=== PATIENT | female | born 1975 | race Caucasian/White ===

== ENCOUNTER 2018-07-17 15:11 | Emergency (ER) | payer SELFPAY ==
[~2018-07-17] VITALS: Ht 162.6 cm; Wt 65.8 kg
--- NOTE | 2018-07-17 15:32 | ED Chest Pain ---
General Chief Complaint: Chest Pain Stated Complaint: CHEST PAIN,WEAK, FAINTED EARLIER TODAY Source: patient, RN notes reviewed Exam Limitations: no limitations History of Present Illness Date Seen by Provider: July 17, 2018 Time Seen by Provider: 15:32 Allergies and Home Medications Allergies Coded Allergies: No Known Drug Allergies (Unverified , 07/17/18) Past Cvcrtyu-Rvlrcg-Cybdbk Hx Patient Social History Recent Foreign Travel: No Contact w/Someone Who Travel: No (N) Physical Exam Vital Signs Vital Signs - First Documented Capillary Refill : Height, Weight, BMI Height: '" Weight: lbs. oz. kg; BMI Method: Progress/Results/Core Measures Results/Orders Lab Results Laboratory Tests Test 07/17/18 00:00 07/17/18 15:35 Range/Units White Blood Count 8.6 4.3-11.0 10^3/uL Red Blood Count 4.60 4.35-5.85 10^6/uL Hemoglobin 14.2 11.5-16.0 G/DL Hematocrit 40 35-52 % Mean Corpuscular Volume 87 80-99 FL Mean Corpuscular Hemoglobin 31 25-34 PG Mean Corpuscular Hemoglobin Concent 36 32-36 G/DL Red Cell Distribution Width 13.0 10.0-14.5 % Platelet Count 240 130-400 10^3/uL Mean Platelet Volume 11.1 H 7.4-10.4 FL Neutrophils (%) (Auto) 52 42-75 % Lymphocytes (%) (Auto) 40 12-44 % Monocytes (%) (Auto) 6 0-12 % Eosinophils (%) (Auto) 2 0-10 % Basophils (%) (Auto) 0 0-10 % Neutrophils # (Auto) 4.4 1.8-7.8 X 10^3 Lymphocytes # (Auto) 3.4 1.0-4.0 X 10^3 Monocytes # (Auto) 0.6 0.0-1.0 X 10^3 Eosinophils # (Auto) 0.2 0.0-0.3 10^3/uL Basophils # (Auto) 0.0 0.0-0.1 10^3/uL D-Dimer 0.33 0.00-0.49 UG/ML Sodium Level 140 135-145 MMOL/L Potassium Level 3.7 3.6-5.0 MMOL/L Chloride Level 102 98-107 MMOL/L Carbon Dioxide Level 24 21-32 MMOL/L Anion Gap 14 5-14 MMOL/L Blood Urea Nitrogen 6 L 7-18 MG/DL Creatinine 0.80 0.60-1.30 MG/DL Estimat Glomerular Filtration Rate > 60 BUN/Creatinine Ratio 8 Glucose Level 121 H 70-105 MG/DL Calcium Level 8.7 8.5-10.1 MG/DL Corrected Calcium 8.5-10.1 MG/DL Magnesium Level 2.0 1.8-2.4 MG/DL Total Bilirubin 0.3 0.1-1.0 MG/DL Aspartate Amino Transf (AST/SGOT) 14 5-34 U/L Alanine Aminotransferase (ALT/SGPT) 10 0-55 U/L Alkaline Phosphatase 91 40-136 U/L Troponin T < 6 <=10 NG/L Total Protein 7.5 6.4-8.2 GM/DL Albumin 4.6 H 3.2-4.5 GM/DL Lipase 21 8-78 U/L My Orders Orders - PATRICIA LAMB DO Chest 1 View Ap/Pa Only (07/17/18 15:32) Ekg Tracing (07/17/18 15:32) Ed Iv/Invasive Line Start (07/17/18 15:32) Monitor-Rhythm Ecg Trace Only (07/17/18 15:32) Cbc With Automated Diff (07/17/18 15:32) Comprehensive Metabolic Panel (07/17/18 15:32) Fibrin Degradation Products (07/17/18 15:32) Drug Screen Stat (Urine) (07/17/18 15:32) Lipase (07/17/18 15:32) Magnesium (07/17/18 15:32) Ua Culture If Indicated (07/17/18 15:32) Troponin T (07/17/18 15:32) Orthostatic Vital Signs (Adult (07/17/18 15:32) Lidocaine 2% Viscous 15 Ml (Xylocaine Vi (07/17/18 16:45) Antacid Suspension (Mylanta Suspension (07/17/18 16:45) Ketorolac Injection (Toradol Injection) (07/17/18 18:00) Medications Given in ED Current Medications Medications Dose Ordered Sig/Tejas Route Start Time Stop Time Status Last Admin Dose Admin Al Hydrox/Mg Hydrox/Simethicone 30 ml ONCE ONCE PO 07/17/18 16:45 07/17/18 16:46 DC 07/17/18 17:04 30 ML Ketorolac Tromethamine 15 mg ONCE ONCE IVP 07/17/18 18:00 07/17/18 18:01 DC 07/17/18 18:07 15 MG Lidocaine HCl 15 ml ONCE ONCE PO 07/17/18 16:45 07/17/18 16:46 DC 07/17/18 17:05 15 ML Vital Signs/I&O 07/17/18 07/17/18 07/17/18 15:25 15:25 16:12 Temp 99.6 Pulse 93 94 100 134 Resp 13 B/P (MAP) 103/76 (85) 104/66 (79) 113/84 (94) 97/68 (78) Pulse Ox 97 O2 Delivery Room Air Room Air Initial ECG Impression Date: July 17, 2018 Initial ECG Impression Time: 15:29 Initial ECG Rate: 84 Initial ECG Rhythm: Normal Sinus Initial ECG Intervals: QT (Prolonged) Initial ECG Impression: Nonspecific Changes Initial ECG Comparisson: No Previous ECG Available Departure Impression Primary Impression: Non-cardiac chest pain Additional Impression: Gastritis vs PUD Disposition: 01 HOME, SELF-CARE Condition: Stable Departure-Patient Inst. Decision time for Depature: 18:17 Referrals: [facility] [place] Patient Instructions: Chest Pain That Is Not Caused by the Heart (DC), Gastritis (DC), Ulcer and Gastritis Diet Add. Discharge Instructions: All discharge instructions reviewed with patient and/or family. Voiced understanding. NEED TO CALL [facility] TOMORROW, 07/18, AND ARRANGE FOLLOW UP APPOINTMENT AND CARE, WELL GET ESTABLISHED WITH A PCP. Scripts Tramadol HCl (Tramadol HCl) 50 Mg Tablet 50-100 MG PO Q6H PRN for PAIN-MILD TO MODERATE, #20 TAB 0 Refills Prov: PATRICIA LAMB DO 07/17/18 Ondansetron (Ondansetron Odt) 4 Mg Tab.rapdis 4 MG PO Q6H PRN for NAUSEA/VOMITING, #10 TAB 0 Refills Prov: PATRICIA LAMB DO 07/17/18 Famotidine (Pepcid) 20 Mg Tablet 20 MG PO BID for GASTRITIS, #30 TAB 0 Refills Prov: PATRICIA LAMB DO 07/17/18 PATRICIA LAMB DO July 17, 2018 15:32
[2018-07-17 15:48] LABS: HEMATOCRIT 40 % (35-52); HEMOGLOBIN 14.2 G/DL (11.5-16.0); MEAN CORPUSCULAR HEMOGLOBIN 31 PG (25-34); MEAN CORPUSCULAR VOLUME 87 FL (80-99); WHITE BLOOD COUNT 8.6 10^3/uL (4.3-11.0)
[2018-07-17 15:49] LABS: BASOPHILS % (AUTO) 0 % (0-10); EOSINOPHILS # (AUTO) 0.2 10^3/uL (0.0-0.3); EOSINOPHILS % (AUTO) 2 % (0-10); LYMPHOCYTES # (AUTO) 3.4 X 10^3 (1.0-4.0); LYMPHOCYTES % (AUTO) 40 % (12-44); MEAN CORPUSCULAR HGB CONC 36 G/DL (32-36); MEAN PLATELET VOLUME 11.1 FL (7.4-10.4); MONOCYTES # (AUTO) 0.6 X 10^3 (0.0-1.0); MONOCYTES % (AUTO) 6 % (0-12); NEUTROPHILS # (AUTO) 4.4 X 10^3 (1.8-7.8); NEUTROPHILS % (AUTO) 52 % (42-75); PLATELET COUNT 240 10^3/uL (130-400)
[2018-07-17 16:09] LABS: CHLORIDE 102 MMOL/L (98-107); POTASSIUM 3.7 MMOL/L (3.6-5.0); SODIUM 140 MMOL/L (135-145)
[2018-07-17 16:10] LABS: ALANINE AMINOTRANSFERASE 10 U/L (0-55); ALBUMIN 4.6 GM/DL (3.2-4.5); ALKALINE PHOSPHATASE 91 U/L (40-136); BILIRUBIN,TOTAL 0.3 MG/DL (0.1-1.0); BUN/CREATININE RATIO 8; CALCIUM 8.7 MG/DL (8.5-10.1); CARBON DIOXIDE 24 MMOL/L (21-32); GFR ESTIMATED > 60; GLUCOSE 121 MG/DL (70-105); LIPASE 21 U/L (8-78); TOTAL PROTEIN 7.5 GM/DL (6.4-8.2)
[2018-07-17 16:12] VITALS: BP_SYST 104; BP_SYST 113; BP_SYST 97; BP_DIAS 66; BP_DIAS 68; BP_DIAS 84
--- NOTE | 2018-07-17 16:17 | Diagnostic Imaging Report ---
INDICATION: Chest pain. Portable chest at 4 p.m. FINDINGS: Heart size and pulmonary vascularity are normal. Lungs are clear. There are no effusions or pneumothoraces. IMPRESSION: Negative chest. Dictated by: Dictated on workstation # [id number]
[2018-07-17] MEDS ORDERED: ANTACID SUSP 30 ML UDC (MYLANTA) PO ONE (16:45)
[2018-07-17] MEDS ORDERED: LIDOCAINE 2% VISCOUS 15 ML UDC PO ONE (16:45)
--- OUTSIDE RECORDS SUMMARY | 2018-07-17 17:06 | XMS REPORT | Continuity of Care Document ---
Author Organization Unknown Address Unknown Allergies Active Description Code Type Severity Reaction Onset Reported/Identified Relationship to Patient Clinical Status Yes NO NAME AVAILABLE 12016 DRUG N/A N/A Medications Medication Packaging Start Date Stop Date Route Dosage Sig ALUM T MAG HYDROXIDE-SIMETH 200-200-20 MG/5ML PO SUSP 05/27/2016 Oral 30 4 TIMES DAILY PRN OLANZAPINE 10 MG PO TBDP 05/27/2016 Oral 10 2 TIMES DAILY PRN ACETAMINOPHEN 325 MG PO TABS 05/27/2016 Oral 650 EVERY 6 HOURS PRN MAGNESIUM HYDROXIDE 400 MG/5ML PO SUSP 05/27/2016 Oral 30 DAILY PRN QUETIAPINE FUMARATE 25 MG PO TABS 05/27/2016 Oral 25 4 TIMES DAILY PRN TRAZODONE HCL 100 MG PO TABS 05/27/2016 Oral 100 BEDTIME PRN NICOTINE POLACRILEX 2 MG MT GUM 05/27/2016 Oral 2 EVERY 1 HOUR PRN NICOTINE POLACRILEX 2 MG MT LOZG 05/27/2016 Oral 2 EVERY 1 HOUR PRN NICOTINE 14 MG/24HR TD PT24 05/27/2016 Transdermal 1 DAILY NICOTINE 21 MG/24HR TD PT24 05/27/2016 Transdermal 1 DAILY VENLAFAXINE HCL ER 37.5 MG PO CP24 05/27/2016 Oral 37.5 DAILY WITH BREAKFAST HYDROXYZINE HCL 25 MG PO TABS 05/27/2016 Oral 25 DAILY PRN NITROFURANTOIN MONOHYD MACRO 100 MG PO CAPS 05/27/2016 Oral 100 2 TIMES DAILY WITH MEALS HYDROXYZINE HCL 25 MG PO TABS 05/27/2016 Oral 25 BEDTIME HYDROXYZINE HCL 25 MG PO TABS 05/29/2016 Oral 50 BEDTIME VENLAFAXINE HCL ER 37.5 MG PO CP24 05/30/2016 Oral 37.5 ONCE VENLAFAXINE HCL ER 75 MG PO CP24 05/31/2016 Oral 75 DAILY WITH BREAKFAST NICOTINE POLACRILEX 2 MG MT GUM 08/31/2017 Oral 2 EVERY 1 HOUR PRN NICOTINE POLACRILEX 2 MG MT LOZG 08/31/2017 Oral 2 EVERY 1 HOUR PRN TRAZODONE HCL 100 MG PO TABS 08/31/2017 Oral 100 BEDTIME PRN ALUM T MAG HYDROXIDE-SIMETH 200-200-20 MG/5ML PO SUSP 08/31/2017 Oral 30 4 TIMES DAILY PRN ACETAMINOPHEN 325 MG PO TABS 08/31/2017 Oral 650 EVERY 6 HOURS PRN MAGNESIUM HYDROXIDE 400 MG/5ML PO SUSP 08/31/2017 Oral 30 DAILY PRN QUETIAPINE FUMARATE 25 MG PO TABS 08/31/2017 Oral 25 4 TIMES DAILY PRN OLANZAPINE 10 MG PO TBDP 08/31/2017 Oral 10 2 TIMES DAILY PRN OLANZAPINE 10 MG PO TABS 08/31/2017 Oral 10 2 TIMES DAILY PRN PAROXETINE HCL 20 MG PO TABS 08/31/2017 Oral 20 EVERY MORNING NICOTINE 14 MG/24HR TD PT24 08/31/2017 Transdermal 1 DAILY NICOTINE 21 MG/24HR TD PT24 08/31/2017 Transdermal 1 DAILY PALIPERIDONE ER 6 MG PO TB24 08/31/2017 Oral 6 EVERY MORNING PALIPERIDONE PALMITATE 234 MG/1.5ML IM SUSP 08/31/2017 Intramuscular 234 ONCE GABAPENTIN 400 MG PO CAPS 08/31/2017 Oral 400 3 TIMES DAILY PROCHLORPERAZINE 25 MG RE SUPP 08/31/2017 Rectal 25 EVERY 6 HOURS PRN IBUPROFEN 600 MG PO TABS 08/31/2017 Oral 600 EVERY 4 HOURS PRN OLANZAPINE 5 MG PO TBDP 08/31/2017 Sublingual 5 EVERY 4 HOURS PRN ALUM T MAG HYDROXIDE-SIMETH 200-200-20 MG/5ML PO SUSP 08/31/2017 Oral 60 EVERY 1 HOUR PRN THIAMINE HCL 100 MG/ML IJ SOLN 08/31/2017 Intramuscular 100 ONCE VITAMIN B-1 100 MG PO TABS 08/31/2017 09/30/2017 Oral 100 DAILY FOLIC ACID 1 MG PO TABS 08/31/2017 09/30/2017 Oral 1 DAILY CENTRUM PO TABS 08/31/2017 Oral 1 DAILY PALIPERIDONE PALMITATE 117 MG/0.75ML IM SUSP 09/04/2017 Intramuscular 156 ONCE GABAPENTIN 400 MG PO CAPS 09/04/2017 Oral 400 3 TIMES DAILY Problems Date Dx Coded Attending Type Code Diagnosis Diagnosed By 05/30/2016 BETHANIE INIGUEZ V 310462 Suicidal BETHANIE INIGUEZ 05/30/2016 ELAINA INIGUEZKILA V F32.2 Major depressive disorder, single episode, severe without psychotic features (HCC) BETHANIE INIGUEZ 05/30/2016 BETHANIE INIGUEZ P T50.902A Poisoning by unspecified drugs, medicaments and biological substances, intentional self-harm, initial encounter ([facility]) BETHANIE INIGUEZ 09/04/2017 JUSTIN LEACH V [id number] Suicidal 09/04/2017 JUSTIN LEACH V 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, unspecified with unspecified alcohol-induced disorder (HCC) 09/04/2017 JUSTIN LEACH V F32.2 Major depressive disorder, single episode, severe without psychotic features (HCC) 09/04/2017 JUSTIN LEACH V F41.1 Generalized anxiety disorder 09/04/2017 JUSTIN LEACH V F41.9 Anxiety disorder, unspecified 09/04/2017 JUSTIN LEACH P T50.902A Poisoning by unspecified drugs, medicaments and biological substances, intentional self-harm, initial encounter ([facility]) 09/04/2017 JUSTIN LEACH F F10.10 Alcohol abuse, uncomplicated 09/04/2017 JUSTIN LEACH F F17.210 Nicotine dependence, cigarettes, uncomplicated 09/04/2017 JUSTIN LEACH F31.81 Bipolar II disorder (HCC) 09/04/2017 JUSTIN LEACH F41.0 Panic disorder (episodic paroxysmal anxiety) 09/04/2017 JUSTIN LEACH F41.1 Generalized anxiety disorder 09/04/2017 JUSTIN LEACH F60.3 Borderline personality disorder 09/04/2017 JUSTIN LEACH J44.9 Chronic obstructive pulmonary disease, unspecified (HCC) 09/04/2017 JUSTIN LEACH Z79.899 Other usp (current) drug therapy 09/04/2017 JUSTIN LEACH Z86.59 Personal history of other mental and behavioral disorders 09/04/2017 JUSTIN LEACH Z90.710 Acquired absence of both cervix and uterus 09/04/2017 JUSTIN LEACH Z91.5 Personal history of self-harm 09/04/2017 JUSTIN LEACH Z98.51 Tubal ligation status Procedures There is no data. Results There is no data. Encounters ACCT No. Visit Date/Time Discharge Status Pt. Type Provider Facility Loc./Unit Complaint [id number] 08/31/2017 10:42:00 09/04/2017 10:53:00 DIS Inpatient JUSTIN LEACH [facility] [id number] 05/27/2016 04:37:00 05/30/2016 16:53:00 DIS Inpatient BETHANIE INIGUEZ [facility] VN [id number] 05/27/2016 06:27:52 Document Registration
[2018-07-17] MEDS ORDERED: KETOROLAC 30 MG/ML VIAL IVP ONE (18:00)
[2018-07-17] MEDS ORDERED: FAMO-119 PO (18:20)
[2018-07-17] MEDS ORDERED: ONDA4TAB11 PO (18:21)
[2018-07-17] MEDS ORDERED: TRAM50TA2 PO (18:22)
[2018-07-17] MEDS ORDERED: FAMOTIDINE 20MG/2ML IV (PEPCID) IVP ONE (18:30)
[2018-07-17 18:52] VITALS: BP 117/83
== END 2018-07-17 18:52 | disposition home or self-care (01) ==
LOC: EDUNIT# 15:11 → ER FS 15:13
DX: R07.9 Chest pain, unspecified (principal)
CPT/HCPCS: 36415; 71045; 80053; 83690; 83735; 84484; 85025; 85379; 93005; 93041; 96374; 96375

== ENCOUNTER 2018-08-20 17:56 | Emergency (ER) | payer SELFPAY ==
[~2018-08-20] VITALS: Ht 162.6 cm; Wt 63.5 kg
[~2018-08-20 17:56] MED LIST: FAMO-119 PO; ONDA4TAB11 PO; TRAM50TA2 PO
[2018-08-20] MEDS ORDERED: morphine INJ 10 MG/ML 1ML (SYR OR VIAL) IVP STA (18:14)
[2018-08-20] MEDS ORDERED: NS IV 1000 ML 1,000 ML IV SCH (18:15)
[2018-08-20] MEDS ORDERED: PANTOPRAZOLE 40 MG (PROTONIX) VIAL IV ONE (18:15)
[2018-08-20] MEDS ORDERED: ANTACID SUSP 30 ML UDC (MYLANTA) PO ONE (18:15)
[2018-08-20] MEDS ORDERED: ONDANSETRON 4 MG/2 ML (SDV) Z0FRAN IVP ONE (18:15)
--- NOTE | 2018-08-20 18:16 | ED General ---
General Stated Complaint: ABD PAIN, VOMITING History of Present Illness Date Seen by Provider: Aug 20, 2018 Time Seen by Provider: 18:16 Initial Comments Patient presents emergency department for evaluation of abdominal pain that has been going on for more than a month and she has been seen by emergency room and primary care provider and told that she has ulcers and started on medication for ulcers but she does not know what it is. Pain is epigastric sharp intermittent worse with food causes nausea and vomiting and she says she cannot tolerate anything by mouth. She's had no fevers chills diarrhea constipation dysuria hematuria or vaginal bleeding or vaginal discharge. She is in no obvious distress with normal vital signs. Allergies and Home Medications Allergies Coded Allergies: No Known Drug Allergies (Unverified , 07/17/18) Home Medications Famotidine 20 Mg Tablet, 20 MG PO BID Prescribed by: PATRICIA LAMB on 07/17/181819 Ondansetron 4 Mg Tab.rapdis, 4 MG PO Q6H PRN for NAUSEA/VOMITING Prescribed by: PATRICIA LAMB on 07/17/181820 Tramadol HCl 50 Mg Tablet, 50-100 MG PO Q6H PRN for PAIN-MILD TO MODERATE Prescribed by: PATRICIA LAMB on 07/17/181821 Patient Home Medication List Home Medication List Reviewed: Yes Review of Systems Review of Systems Constitutional: no symptoms reported EENTM: no symptoms reported Respiratory: no symptoms reported Cardiovascular: no symptoms reported Gastrointestinal: abdominal pain, nausea, vomiting Genitourinary: no symptoms reported Musculoskeletal: no symptoms reported Skin: no symptoms reported Psychiatric/Neurological: No Symptoms Reported Past Gxodqxx-Fzanaj-Sutuug Hx Patient Social History Type Used: Cigarettes 2nd Hand Smoke Exposure: Yes Recent Foreign Travel: No Contact w/Someone Who Travel: No Recent Hopitalizations: No Seasonal Allergies Seasonal Allergies: No Past Medical History Surgeries: Yes Appendectomy, Hysterectomy Respiratory: No Cardiac: No Neurological: No Genitourinary: No Gastrointestinal: No Musculoskeletal: No Endocrine: No HEENT: No Cancer: No Psychosocial: Yes Anxiety, Depression Integumentary: No Physical Exam Vital Signs Capillary Refill : Height, Weight, BMI Height: 5'4.00" Weight: 145lbs. oz. 65.702846lk; BMI Method:Stated General Appearance: No Apparent Distress, WD/WN Eyes: Bilateral Eye Normal Inspection Neck: Normal Inspection Respiratory: No Respiratory Distress Cardiovascular: Regular Rate, Rhythm Gastrointestinal: Soft; No Guarding, No Rebound; Tenderness (epigastric) Back: Normal Inspection Extremity: Normal Capillary Refill Neurologic/Psychiatric: Alert, Oriented x3 Skin: Normal Color, Warm/Dry Progress/Results/Core Measures Suspected Sepsis SIRS Temperature: Pulse: Respiratory Rate: Laboratory Tests 08/20/18 18:12: White Blood Count 10.4 Blood Pressure / Mean: Laboratory Tests 08/20/18 18:12: Creatinine 0.88, Platelet Count 253, Total Bilirubin 0.4 Results/Orders Lab Results Laboratory Tests Test 08/20/18 18:12 08/20/18 18:49 Range/Units White Blood Count 10.4 4.3-11.0 10^3/uL Red Blood Count 4.45 4.35-5.85 10^6/uL Hemoglobin 13.6 11.5-16.0 G/DL Hematocrit 40 35-52 % Mean Corpuscular Volume 89 80-99 FL Mean Corpuscular Hemoglobin 31 25-34 PG Mean Corpuscular Hemoglobin Concent 34 32-36 G/DL Red Cell Distribution Width 13.2 10.0-14.5 % Platelet Count 253 130-400 10^3/uL Mean Platelet Volume 10.5 H 7.4-10.4 FL Neutrophils (%) (Auto) 44 42-75 % Lymphocytes (%) (Auto) 45 H 12-44 % Monocytes (%) (Auto) 8 0-12 % Eosinophils (%) (Auto) 3 0-10 % Basophils (%) (Auto) 1 0-10 % Neutrophils # (Auto) 4.6 1.8-7.8 X 10^3 Lymphocytes # (Auto) 4.6 H 1.0-4.0 X 10^3 Monocytes # (Auto) 0.8 0.0-1.0 X 10^3 Eosinophils # (Auto) 0.3 0.0-0.3 10^3/uL Basophils # (Auto) 0.1 0.0-0.1 10^3/uL Sodium Level 141 135-145 MMOL/L Potassium Level 3.5 L 3.6-5.0 MMOL/L Chloride Level 103 98-107 MMOL/L Carbon Dioxide Level 25 21-32 MMOL/L Anion Gap 13 5-14 MMOL/L Blood Urea Nitrogen 14 7-18 MG/DL Creatinine 0.88 0.60-1.30 MG/DL Estimat Glomerular Filtration Rate > 60 BUN/Creatinine Ratio 16 Glucose Level 114 H 70-105 MG/DL Calcium Level 8.9 8.5-10.1 MG/DL Corrected Calcium 8.6 8.5-10.1 MG/DL Total Bilirubin 0.4 0.1-1.0 MG/DL Aspartate Amino Transf (AST/SGOT) 12 5-34 U/L Alanine Aminotransferase (ALT/SGPT) 8 0-55 U/L Alkaline Phosphatase 72 40-136 U/L Total Protein 7.6 6.4-8.2 GM/DL Albumin 4.4 3.2-4.5 GM/DL Lipase 23 8-78 U/L Urine Color YELLOW Urine Clarity SLT CLOUDY Urine pH 6.5 5-9 Urine Specific [place] <=1.005 1.016-1.022 Urine Protein 1+ H NEGATIVE Urine Glucose (UA) NEGATIVE NEGATIVE Urine Ketones TRACE H NEGATIVE Urine Nitrite NEGATIVE NEGATIVE Urine Bilirubin NEGATIVE NEGATIVE Urine Urobilinogen 0.2 NORMAL MG/DL Urine Leukocyte Esterase NEGATIVE NEGATIVE Urine RBC (Auto) 2+ H NEGATIVE Urine RBC 0-2 /HPF Urine WBC 0-2 /HPF Urine Squamous Epithelial Cells 25-50 H /HPF Urine Crystals NONE /LPF Urine Bacteria TRACE /HPF Urine Casts NONE /LPF Urine Mucus SMALL H /LPF Urine Culture Indicated NO My Orders Orders - ADARSH AVITIA DO Comprehensive Metabolic Panel (08/20/18 18:14) Cbc With Automated Diff (08/20/18 18:14) Lipase (08/20/18 18:14) Ua Culture If Indicated (08/20/18 18:14) Ct Abdomen/Pelvis W (08/20/18 18:14) Ns Iv 1000 Ml (Sodium Chloride 0.9%) (08/20/18 18:15) Ondansetron Injection (Zofran Injectio (08/20/18 18:15) Morphine Injection (Morphine Injection (08/20/18 18:14) Antacid Suspension (Mylanta Suspension (08/20/18 18:15) Pantoprazole Injection (Protonix Injecti (08/20/18 18:15) Iohexol Injection (Omnipaque 350 Mg/Ml 1 (08/20/18 18:30) Received Contrast (Hold Metformin- Contr (08/20/18 18:30) Sodium Chloride Flush (Catheter Flush Sy (08/20/18 18:30) Ns (Ivpb) (Sodium Chloride 0.9% Ivpb Bag (08/20/18 18:30) Potassium Chloride (Tablet) (K Dur Table (08/20/18 19:00) Hydrocodone/Apap 5/325 Tablet (Lortab 5 (08/20/18 19:15) Promethazine Injection (Phenergan Injec (08/20/18 19:15) Medications Given in ED Current Medications Medications Dose Ordered Sig/Tejas Route Start Time Stop Time Status Last Admin Dose Admin Al Hydrox/Mg Hydrox/Simethicone 30 ml ONCE ONCE PO 08/20/18 18:15 08/20/18 18:30 DC 08/20/18 18:57 30 ML Iohexol 100 ml ONCE ONCE IV 08/20/18 18:30 08/20/18 18:31 DC 08/20/18 18:37 100 ML Ondansetron HCl 4 mg ONCE ONCE IVP 08/20/18 18:15 08/20/18 18:30 DC 08/20/18 18:57 4 MG Pantoprazole 40 mg ONCE ONCE IV 08/20/18 18:15 08/20/18 18:30 DC 08/20/18 18:58 40 MG Sodium Chloride 10 ml NEEDED PRN IV 08/20/18 18:30 08/20/18 18:36 10 ML Sodium Chloride 100 ml ONCE ONCE IV 08/20/18 18:30 08/20/18 18:31 DC 08/20/18 18:37 60 ML Vital Signs/I&O Capillary Refill : Progress Note : Progress Note Patient with symptoms most consistent with gastritis worse ulcer. She is on H2 robbie Caroline she may need to be transitioned to PPI while awaiting GI consultation. Patient's workup negative for acute process here and her repeat abdominal exam is benign after symptom treatment here. She definitely doesn't have an exact diagnosis yet that she could have a calculus cholecystitis versus gastritis versus ulcer versus other intra-abdominal pathology however there is no signs or symptoms of acute surgical pathology requiring further workup treatment consultation or transfer in my opinion. Patient can tolerate fluids by mouth with no difficulty here. According to her medication list she is on Pepcid once a day I told her she should be on a PPI so prescribe her Protonix 40 mg twice a day until her to eat a soft nonirritating diet and follow with primary care provider and GI as soon as possible. Patient aware and agreeable with plan for discharge and verbalized understanding of the need for short-term follow-up and strict ED return precautions discussed including worsening pain fevers vomiting or other general concerns. Departure Impression Primary Impression: Abdominal pain Qualified Codes: R10.13 - Epigastric pain Disposition: 01 HOME, SELF-CARE Condition: Stable Departure-Patient Inst. Referrals: SELF,PAT PLUMMER (PCP) Primary Care Physician Patient Instructions: Peptic Ulcers (DC) Add. Discharge Instructions: Avoid nsaids (ibuprofen, naproxen, aspirin). Have liquid diet (soups, jellos, yogurt) Follow with GI. Come back with concerns. Scripts Ondansetron (Ondansetron Odt) 4 Mg Tab.rapdis 4 MG PO Q6H PRN for NAUSEA/VOMITING-1ST LINE, #14 TAB Prov: ADARSH AVITIA DO 08/20/18 Pantoprazole Sodium (Protonix) 40 Mg Tablet.dr 40 MG PO BID, #20 TAB Prov: ADARSH AVITIA DO 08/20/18 Hydrocodone Bit/Acetaminophen (Hydrocodone/Acetaminophen 5/325mg Tablet) 1 Tab Tab 1 EACH PO Q4-6HR PRN for PAIN-MODERATE MDD 10 for 3 Days, #8 TAB Prov: ADARSH AVITIA DO 08/20/18 ADARSH AVITIA DO Aug 20, 2018 18:16
[2018-08-20 18:27] LABS: HEMATOCRIT 40 % (35-52); HEMOGLOBIN 13.6 G/DL (11.5-16.0); MEAN CORPUSCULAR HEMOGLOBIN 31 PG (25-34); MEAN CORPUSCULAR HGB CONC 34 G/DL (32-36); MEAN CORPUSCULAR VOLUME 89 FL (80-99); MEAN PLATELET VOLUME 10.5 FL (7.4-10.4); PLATELET COUNT 253 10^3/uL (130-400); RED CELL DISTRIBUTION WIDTH 13.2 % (10.0-14.5); WHITE BLOOD COUNT 10.4 10^3/uL (4.3-11.0)
[2018-08-20 18:28] LABS: BASOPHILS # (AUTO) 0.1 10^3/uL (0.0-0.1); BASOPHILS % (AUTO) 1 % (0-10); EOSINOPHILS # (AUTO) 0.3 10^3/uL (0.0-0.3); EOSINOPHILS % (AUTO) 3 % (0-10); LYMPHOCYTES # (AUTO) 4.6 X 10^3 (1.0-4.0); LYMPHOCYTES % (AUTO) 45 % (12-44); MONOCYTES # (AUTO) 0.8 X 10^3 (0.0-1.0); MONOCYTES % (AUTO) 8 % (0-12); NEUTROPHILS # (AUTO) 4.6 X 10^3 (1.8-7.8); NEUTROPHILS % (AUTO) 44 % (42-75)
[2018-08-20] MEDS ORDERED: NS 100 ML (IVPB) BAG IV ONE (18:30)
[2018-08-20] MEDS ORDERED: HOLD METFORMIN - RECEIVED CONTRAST 20 ML VIAL IV SCH (18:30)
[2018-08-20] MEDS ORDERED: IOHEXOL 350 MG/ML 100 ML (OMNIPAQUE 350) VIAL IV ONE (18:30)
[2018-08-20] MEDS ORDERED: CATHETER FLUSH 10 ML SYR IV PRN (18:30)
[2018-08-20 18:50] LABS: ALANINE AMINOTRANSFERASE 8 U/L (0-55); ALBUMIN 4.4 GM/DL (3.2-4.5); ALKALINE PHOSPHATASE 72 U/L (40-136); BILIRUBIN,TOTAL 0.4 MG/DL (0.1-1.0); BUN/CREATININE RATIO 16; CALCIUM 8.9 MG/DL (8.5-10.1); CARBON DIOXIDE 25 MMOL/L (21-32); CHLORIDE 103 MMOL/L (98-107); CREATININE SERUM 0.88 MG/DL (0.60-1.30); GFR ESTIMATED > 60; GLUCOSE 114 MG/DL (70-105); LIPASE 23 U/L (8-78); POTASSIUM 3.5 MMOL/L (3.6-5.0); SODIUM 141 MMOL/L (135-145); TOTAL PROTEIN 7.6 GM/DL (6.4-8.2)
--- NOTE | 2018-08-20 18:59 | Diagnostic Imaging Report ---
PROCEDURE: CT abdomen and pelvis with contrast. TECHNIQUE: Multiple contiguous axial images were obtained through the abdomen and pelvis after administration of intravenous contrast. Auto Exposure Controls were utilized during the CT exam to meet ALARA standards for radiation dose reduction. INDICATION: Upper abdominal pain for one month. COMPARISON: No prior studies are available for comparison. FINDINGS: There is some scarring or atelectasis in the right middle lobe. Hyperdensity right lobe of the liver inferiorly is noted measuring 13 mm. This appears to be nearly isodense with liver on the delayed images and may represent a flash filling hemangioma. No other liver lesions are seen. Gallbladder is unremarkable. There is no biliary duct dilatation. Pancreas and spleen are unremarkable. No adrenal mass is identified. Kidneys are unremarkable. Aorta is non-aneurysmal. The small and large bowel loops are normal caliber. There is no obstruction. There is no ascites. Partially filled bladder is unremarkable. No inflammatory changes in the abdomen or pelvis are seen. IMPRESSION: 1. Probable flash filling hemangioma right lobe of the liver. 2. No acute feature in the abdomen or pelvis is identified. Dictated by: Dictated on workstation # [id number]
[2018-08-20] MEDS ORDERED: KCL 20 MEQ TAB (K-DUR) PO ONE (19:00)
[2018-08-20] MEDS ORDERED: PROMETHAZINE INJ 25 MG/ML (PHENERGAN) AMP IVP ONE (19:15)
[2018-08-20] MEDS ORDERED: HYDROcodone/APAP 5 MG/325 MG (LORTAB) TAB PO ONE (19:15)
[2018-08-20 19:28] LABS: CLARITY,URINE SLT CLOUDY; COLOR,URINE YELLOW
[2018-08-20 19:29] LABS: BACTERIA,URINE TRACE /HPF; BILIRUBIN,URINE NEGATIVE (NEGATIVE); GLUCOSE, URINE (UA) NEGATIVE (NEGATIVE); KETONES,URINE TRACE (NEGATIVE); LEUKOCYTE ESTERASE ,URINE NEGATIVE (NEGATIVE); NITRITE,URINE NEGATIVE (NEGATIVE); PH,URINE 6.5 (5-9); PROTEIN,URINE 1+ (NEGATIVE); RBC,URINE 0-2 /HPF; SQUAMOUS EPITHELIAL CELL,UR 25-50 /HPF; UROBILINOGEN,URINE 0.2 MG/DL (NORMAL); WBC,URINE 0-2 /HPF
[2018-08-20] MEDS ORDERED: PANT40TA2 PO (19:37)
[2018-08-20] MEDS ORDERED: ACHD5005 PO (19:37)
[2018-08-20] MEDS ORDERED: ONDA4TAB11 PO (19:37)
[2018-08-20 19:50] VITALS: BP 110/65
--- OUTSIDE RECORDS SUMMARY | 2018-08-21 02:04 | XMS REPORT | Continuity of Care Document ---
Author Organization Unknown Address Unknown Allergies Active Description Code Type Severity Reaction Onset Reported/Identified Relationship to Patient Clinical Status Yes NO NAME AVAILABLE 52191 DRUG N/A N/A Yes No Known Drug Allergies [id number] Drug Allergy Unknown N/A 07/17/2018 Medications Medication Packaging Start Date Stop Date [...] Attending Type Code Diagnosis Diagnosed By 05/30/2016 GEETHABETHANIE V [id number] Suicidal BETHANIE INIGUEZ 05/30/2016 GEETHABETHANIE V F32.2 Major depressive disorder, single episode, severe without psychotic features (HCC) BETHANIE INIGUEZ 05/30/2016 IRAISJAEELAINA MiguelBETHANIE P T50.902A Poisoning by unspecified drugs, medicaments and biological substances, intentional self-harm, initial encounter (HCC) ELAINA INIGUEZKILA 09/04/2017 JUSTIN LEACH V [id number] Suicidal 09/04/2017 JUSTIN LEACH V 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, unspecified with unspecified alcohol-induced disorder (HCC) 09/04/2017 JUSTIN LEACH V F32.2 Major depressive disorder, single episode, severe without psychotic features (HCC) 09/04/2017 JUSTIN LEACH V F41.1 Generalized anxiety disorder 09/04/2017 JUSTIN LEACH V F41.9 Anxiety disorder, unspecified 09/04/2017 JUSTIN LEACH P T50.902A Poisoning by unspecified drugs, medicaments and biological substances, intentional self-harm, initial encounter (HCC) 09/04/2017 JUSTIN LEACH F10.10 Alcohol abuse, uncomplicated 09/04/2017 JUSTIN LEACH F17.210 Nicotine dependence, cigarettes, uncomplicated 09/04/2017 JUSTIN LEACH F31.81 Bipolar II disorder (HCC) 09/04/2017 JUSTIN LEACH F41.0 Panic disorder (episodic paroxysmal anxiety) 09/04/2017 JUSTIN LEACH F41.1 Generalized anxiety disorder 09/04/2017 JUSTIN LEACH F60.3 Borderline personality disorder 09/04/2017 JUSTIN LEACH J44.9 Chronic obstructive pulmonary disease, unspecified (HCC) 09/04/2017 JUSTIN LEACH Z79.899 [facility] [place] [facility] drug therapy 09/04/2017 JUSTIN LEACH Z86.59 Personal history of other mental and behavioral disorders 09/04/2017 JUSTIN LEACH Z90.710 Acquired absence of both cervix and uterus 09/04/2017 JUSTIN LEACH Z91.5 Personal history of self-harm 09/04/2017 JUSTIN LEACH Z98.51 Tubal ligation status 07/17/2018 PATRICIA LAMB DO, Ot R07.9 CHEST PAIN, UNSPECIFIED Procedures There is no data. Results Test Result Range Complete blood count (CBC) with automated white blood cell (WBC) differential - 07/17/18 15:35 Blood leukocytes automated count (number/volume) 8.6 10*3/uL 4.3-11.0 Blood erythrocytes automated count (number/volume) 4.60 10*6/uL 4.35-5.85 Venous blood hemoglobin measurement (mass/volume) 14.2 g/dL 11.5-16.0 Blood hematocrit (volume fraction) 40 % 35-52 Automated erythrocyte mean corpuscular volume 87 [foz_us] 80-99 Automated erythrocyte mean corpuscular hemoglobin (mass per erythrocyte) 31 pg 25-34 Automated erythrocyte mean corpuscular hemoglobin concentration measurement (mass/volume) 36 g/dL 32-36 Automated erythrocyte distribution width ratio 13.0 % 10.0- 14.5 Automated blood platelet count (count/volume) 240 10*3/uL 130-400 Automated blood platelet mean volume measurement 11.1 [foz_us] 7.4-10.4 Automated blood neutrophils/100 leukocytes 52 % 42-75 Automated blood lymphocytes/100 leukocytes 40 % 12-44 Blood monocytes/100 leukocytes 6 % 0-12 Automated blood eosinophils/100 leukocytes 2 % 0-10 Automated blood basophils/100 leukocytes 0 % 0-10 Blood neutrophils automated count (number/volume) 4.4 10*3 1.8-7.8 Blood lymphocytes automated count (number/volume) 3.4 10*3 1.0-4.0 Blood monocytes automated count (number/volume) 0.6 10*3 0.0- 1.0 Automated eosinophil count 0.2 10*3/uL 0.0-0.3 Automated blood basophil count (count/volume) 0.0 10*3/uL 0.0-0.1 Comprehensive metabolic panel - 07/17/18 15:35 Serum or plasma sodium measurement (moles/volume) 140 mmol/L 135-145 Serum or plasma potassium measurement (moles/volume) 3.7 mmol/L 3.6-5.0 Serum or plasma chloride measurement (moles/volume) 102 mmol/L 98-107 Carbon dioxide 24 mmol/L 21-32 Serum or plasma anion gap determination (moles/volume) 14 mmol/L 5-14 Serum or plasma urea nitrogen measurement (mass/volume) 6 mg/dL 7-18 Serum or plasma creatinine measurement (mass/volume) 0.80 mg/dL 0.60-1.30 Serum or plasma urea nitrogen/creatinine mass ratio 8 NRG Serum or plasma creatinine measurement with calculation of estimated glomerular filtration rate > NRG Serum or plasma glucose measurement (mass/volume) 121 mg/dL 70-105 Serum or plasma calcium measurement (mass/volume) 8.7 mg/dL 8.5-10.1 Serum or plasma total bilirubin measurement (mass/volume) 0.3 mg/dL 0.1-1.0 Serum or plasma alkaline phosphatase measurement (enzymatic activity/volume) 91 U/L 40-136 Serum or plasma aspartate aminotransferase measurement (enzymatic activity/volume) 14 U/L 5-34 Serum or plasma alanine aminotransferase measurement (enzymatic activity/volume) 10 U/L 0-55 Serum or plasma protein measurement (mass/volume) 7.5 g/dL 6.4-8.2 Serum or plasma albumin measurement (mass/volume) 4.6 g/dL 3.2-4.5 Magnesium - 07/17/18 15:35 Magnesium 2.0 mg/dL 1.8-2.4 TROPONIN T - 07/17/18 15:35 TROPONIN T < 6 <=10 Lipase - 07/17/18 15:35 Lipase 21 U/L 8-78 Fibrin D-dimer FEU measurement in platelet poor plasma (mass/volume) - 07/17/18 15:35 Fibrin D-dimer FEU measurement in platelet poor plasma (mass/volume) 0.33 ug/mL 0.00-0.49 Complete blood count (CBC) with automated white blood cell (WBC) differential - 08/20/18 18:12 Blood leukocytes automated count (number/volume) 10.4 10*3/uL 4.3-11.0 Blood erythrocytes automated count (number/volume) 4.45 10*6/uL 4.35-5.85 Venous blood hemoglobin measurement (mass/volume) 13.6 g/dL 11.5-16.0 Blood hematocrit (volume fraction) 40 % 35-52 Automated erythrocyte mean corpuscular volume 89 [foz_us] 80-99 Automated erythrocyte mean corpuscular hemoglobin (mass per erythrocyte) 31 pg 25-34 Automated erythrocyte mean corpuscular hemoglobin concentration measurement (mass/volume) 34 g/dL 32-36 Automated erythrocyte distribution width ratio 13.2 % 10.0- 14.5 Automated blood platelet count (count/volume) 253 10*3/uL 130-400 Automated blood platelet mean volume measurement 10.5 [foz_us] 7.4-10.4 Automated blood neutrophils/100 leukocytes 44 % 42-75 Automated blood lymphocytes/100 leukocytes 45 % 12-44 Blood monocytes/100 leukocytes 8 % 0-12 Automated blood eosinophils/100 leukocytes 3 % 0-10 Automated blood basophils/100 leukocytes 1 % 0-10 Blood neutrophils automated count (number/volume) 4.6 10*3 1.8-7.8 Blood lymphocytes automated count (number/volume) 4.6 10*3 1.0-4.0 Blood monocytes automated count (number/volume) 0.8 10*3 0.0- 1.0 Automated eosinophil count 0.3 10*3/uL 0.0-0.3 Automated blood basophil count (count/volume) 0.1 10*3/uL 0.0-0.1 Comprehensive metabolic panel - 08/20/18 18:12 Serum or plasma sodium measurement (moles/volume) 141 mmol/L 135-145 Serum or plasma potassium measurement (moles/volume) 3.5 mmol/L 3.6-5.0 Serum or plasma chloride measurement (moles/volume) 103 mmol/L 98-107 Carbon dioxide 25 mmol/L 21-32 Serum or plasma anion gap determination (moles/volume) 13 mmol/L 5-14 Serum or plasma urea nitrogen measurement (mass/volume) 14 mg/dL 7-18 Serum or plasma creatinine measurement (mass/volume) 0.88 mg/dL 0.60-1.30 Serum or plasma urea nitrogen/creatinine mass ratio 16 NRG Serum or plasma creatinine measurement with calculation of estimated glomerular filtration rate > NRG Serum or plasma glucose measurement (mass/volume) 114 mg/dL 70-105 Serum or plasma calcium measurement (mass/volume) 8.9 mg/dL 8.5-10.1 Serum or plasma total bilirubin measurement (mass/volume) 0.4 mg/dL 0.1-1.0 Serum or plasma alkaline phosphatase measurement (enzymatic activity/volume) 72 U/L 40-136 Serum or plasma aspartate aminotransferase measurement (enzymatic activity/volume) 12 U/L 5-34 Serum or plasma alanine aminotransferase measurement (enzymatic activity/volume) 8 U/L 0-55 Serum or plasma protein measurement (mass/volume) 7.6 g/dL 6.4-8.2 Serum or plasma albumin measurement (mass/volume) 4.4 g/dL 3.2-4.5 CALCIUM CORRECTED 8.6 mg/dL 8.5-10.1 Lipase - 08/20/18 18:12 Lipase 23 U/L 8-78 Complete urinalysis with reflex to culture - 08/20/18 18:49 Urine color determination YELLOW NRG Urine clarity determination SLT CLOUDY NRG Urine pH measurement by test strip 6.5 5-9 Specific gravity of urine by test strip <= 1.016-1.022 Urine protein assay by test strip, semi-quantitative 1+ NEGATIVE Urine glucose detection by automated test strip NEGATIVE NEGATIVE Erythrocytes detection in urine sediment by light microscopy 2+ NEGATIVE Urine ketones detection by automated test strip TRACE NEGATIVE Urine nitrite detection by test strip NEGATIVE NEGATIVE Urine total bilirubin detection by test strip NEGATIVE NEGATIVE Urine urobilinogen measurement by automated test strip (mass/volume) 0.2 mg/dL NORMAL Urine leukocyte esterase detection by dipstick NEGATIVE NEGATIVE Automated urine sediment erythrocyte count by microscopy (number/high power field) [HPF] NRG Automated urine sediment leukocyte count by microscopy (number/high power field) [HPF] NRG Bacteria detection in urine sediment by light microscopy TRACE NRG Squamous epithelial cells detection in urine sediment by light microscopy 25-50 NRG Crystals detection in urine sediment by light microscopy NONE NRG Casts detection in urine sediment by light microscopy NONE NRG Mucus detection in urine sediment by light microscopy SMALL NRG Complete urinalysis with reflex to culture NO NRG Encounters ACCT No. Visit Date/Time Discharge Status Pt. Type Provider Facility Loc./Unit Complaint [id number] 07/19/2018 14:00:00 07/19/2018 23:59:59 CLS [facility] [id number] 08/31/2017 10:42:00 09/04/2017 10:53:00 DIS Inpatient JUSTIN LEACH [facility] [id number] 05/27/2016 04:37:00 05/30/2016 16:53:00 [facility] [id number] 05/27/2016 06:27:52 Document Registration [id number] 08/20/2018 17:58:00 08/20/2018 19:50:00 DIS Emergency ADARSH AVITIA DO [facility] ER FS ABD PAIN, VOMITING [id number] 07/17/2018 15:13:00 07/17/2018 18:52:00 DIS Emergency PATRICIA LAMB DO [facility] ER FS CHEST PAIN,WEAK, FAINTED EARLIER TODAY
== END 2018-08-20 19:50 | disposition home or self-care (01) ==
LOC: EDUNIT# 17:56 → ER FS 17:58
DX: R10.13 Epigastric pain (principal); F41.9 Anxiety disorder, unspecified; F32.9 Major depressive disorder, single episode, unspecified; Z77.22 Contact with and (suspected) exposure to environmental tobacco smoke (acute) (chronic); Z90.710 Acquired absence of both cervix and uterus; Z90.49 Acquired absence of other specified parts of digestive tract
CPT/HCPCS: 36415; 74177; 80053; 81000; 83690; 85025

== ENCOUNTER 2018-08-28 21:45 | Emergency (ER) | payer SELFPAY ==
[~2018-08-28] VITALS: Ht 162.6 cm; Wt 62.6 kg
[~2018-08-28 21:45] MED LIST changes: +ACHD5005 PO; +PANT40TA2 PO
--- OUTSIDE RECORDS SUMMARY | 2018-08-28 21:52 | XMS REPORT | Continuity of Care Document ---
Author Organization Unknown Address Unknown Allergies Active Description Code Type Severity Reaction Onset Reported/Identified Relationship to Patient Clinical Status Yes NO NAME AVAILABLE 84758 DRUG N/A N/A Yes No Known Drug Allergies [id number] Drug Allergy Unknown N/A 07/17/2018 Medications Medication [...] Code Diagnosis Diagnosed By 05/30/2016 GEETHABETHANIE V [id number] Suicidal BETHANIE INIGUEZ 05/30/2016 GEETHABETHANIE V F32.2 Major depressive disorder, single episode, severe without psychotic features (HCC) BETHANIE INIGUEZ 05/30/2016 IRAISJAEELAINA MiguelBETHANIE P T50.902A Poisoning by unspecified drugs, medicaments and biological substances, intentional self-harm, initial encounter (HCC) ELAINA INIGUEZKILA 09/04/2017 JUSTIN LEACH V [id number] Suicidal 09/04/2017 JUSTIN LEACH V F10.99 Alcohol [...] unspecified (HCC) 09/04/2017 JUSTIN LEACH Z79.899 [facility] 09/04/2017 JUSTIN LEACH Z86.59 Personal history of other mental and behavioral disorders 09/04/2017 JUSTIN LEACH Z90.710 Acquired absence of both cervix and uterus 09/04/2017 JUSTIN LEACH Z91.5 Personal history of self-harm 09/04/2017 JUSTIN LEACH Z98.51 Tubal ligation status 07/17/2018 PATRICIA LAMB DO, Ot R07.9 CHEST PAIN, UNSPECIFIED 08/22/2018 ADARSH AVITIA DO, Ot F32.9 MAJOR DEPRESSIVE DISORDER, SINGLE EPISOD 08/22/2018 ADARSH AVITIA DO, Ot F41.9 ANXIETY DISORDER, UNSPECIFIED 08/22/2018 ADARSH AVITIA DO, Ot R10.13 EPIGASTRIC PAIN 08/22/2018 ADARSH AVITIA DO, Ot Z77.22 CNTCT W AND EXPSR TO ENVIRON TOBACCO SMO 08/22/2018 ADARSH AVITIA DO, Ot Z90.49 ACQUIRED ABSENCE OF OTHER SPECIFIED PART 08/22/2018 ADARSH AVITIA DO, Ot Z90.710 ACQUIRED ABSENCE OF BOTH CERVIX AND UTER Procedures There is no data. Results Test [...] Status Pt. Type Provider Facility Loc./Unit Complaint [id number] 07/19/2018 14:00:00 07/19/2018 23:59:59 [facility] [id number] 08/31/2017 10:42:00 09/04/2017 10:53:00 DIS Inpatient JUSTIN LEACH [facility] [id number] 05/27/2016 04:37:00 05/30/2016 16:53:00 DIS Inpatient BETHANIE INIGUEZ [facility] VN [id number] 05/27/2016 06:27:52 Document Registration [id number] 08/20/2018 17:58:00 08/20/2018 19:50:00 DIS Outpatient ADARSH AVITIA DO [facility] ER FS ABD PAIN, VOMITING [id number] 07/17/2018 15:13:00 07/17/2018 18:52:00 DIS Emergency PATRICIA LAMB DO [facility] ER FS CHEST PAIN,WEAK, FAINTED EARLIER TODAY
[2018-08-28 22:18] LABS: AMPHETAMINE SCREEN, URINE NEGATIVE (NEGATIVE); BARBITURATE SCREEN URINE NEGATIVE (NEGATIVE); BENZODIAZEPINES SCREEN URINE POSITIVE (NEGATIVE); CANNABINOID SCREEN, URINE NEGATIVE (NEGATIVE); COCAINE SCREEN URINE NEGATIVE (NEGATIVE); METHADONE STAT NEGATIVE (NEGATIVE); METHAMPHETAMINE SCREEN URINE S NEGATIVE (NEGATIVE); OPIATE SCREEN URINE NEGATIVE (NEGATIVE); OXYCODONE STAT NEGATIVE (NEGATIVE); PROPOXYPHENE STAT NEGATIVE (NEGATIVE); TRICYCLIC ANTIDEPRESSANTS SCRE NEGATIVE (NEGATIVE)
[2018-08-28] MEDS ORDERED: NS IV 1000 ML 1,000 ML IV STA (22:18)
[2018-08-28] MEDS ORDERED: FAMOTIDINE 20 MG (PEPCID) TABLET PO STA (22:18)
[2018-08-28 22:19] LABS: BACTERIA,URINE NEG /HPF; BILIRUBIN,URINE 2+ (NEGATIVE); CLARITY,URINE CLOUDY; COLOR,URINE YELLOW; GLUCOSE, URINE (UA) NEGATIVE (NEGATIVE); KETONES,URINE 2+ (NEGATIVE); LEUKOCYTE ESTERASE ,URINE NEGATIVE (NEGATIVE); NITRITE,URINE NEGATIVE (NEGATIVE); PH,URINE 6.5 (5-9); PROTEIN,URINE 1+ (NEGATIVE); SQUAMOUS EPITHELIAL CELL,UR >50 /HPF
[2018-08-28 22:20] LABS: AMORPHOUS SEDIMENT,UR FEW AMOR URATES /LPF
[2018-08-28 22:30] LABS: WHITE BLOOD COUNT 7.5 10^3/uL (4.3-11.0)
[2018-08-28] MEDS ORDERED: ANTACID SUSP 30 ML UDC (MYLANTA) PO ONE (22:30)
[2018-08-28] MEDS ORDERED: LIDOCAINE 2% VISCOUS 15 ML UDC PO ONE (22:30)
[2018-08-28] MEDS ORDERED: ONDANSETRON 4 MG/2 ML (SDV) Z0FRAN IVP ONE (22:30)
[2018-08-28 22:31] LABS: BASOPHILS # (AUTO) 0.1 10^3/uL (0.0-0.1); BASOPHILS % (AUTO) 1 % (0-10); EOSINOPHILS # (AUTO) 0.2 10^3/uL (0.0-0.3); EOSINOPHILS % (AUTO) 3 % (0-10); HEMATOCRIT 39 % (35-52); HEMOGLOBIN 13.6 G/DL (11.5-16.0); LYMPHOCYTES # (AUTO) 3.2 X 10^3 (1.0-4.0); LYMPHOCYTES % (AUTO) 43 % (12-44); MEAN CORPUSCULAR HEMOGLOBIN 30 PG (25-34); MEAN CORPUSCULAR HGB CONC 35 G/DL (32-36); MEAN CORPUSCULAR VOLUME 88 FL (80-99); MONOCYTES # (AUTO) 0.5 X 10^3 (0.0-1.0); MONOCYTES % (AUTO) 7 % (0-12); NEUTROPHILS # (AUTO) 3.5 X 10^3 (1.8-7.8); NEUTROPHILS % (AUTO) 47 % (42-75); PLATELET COUNT 240 10^3/uL (130-400)
--- NOTE | 2018-08-28 22:31 | ED Abdominal Pain ---
General Chief Complaint: Abdominal/GI Problems Stated Complaint: ABD PAIN Source of Information: Patient, Police Exam Limitations: No Limitations History of Present Illness Date Seen by Provider: Aug 28, 2018 Time Seen by Provider: 22:09 Initial Comments The patient presents to the ER with a transit authority police officer who went out to check on her because she was out in the parking lot crying and upset. She is having abdominal pain epigastric and she's had this worked up yesterday at [facility] ER and her ultrasound and labs and urinalysis were all okay and they referred her to a GI doctor which she will see on Monday of next week, 7 days from now. She said she was doing okay but then her and her were fig hting and that's why she was tearful and upset and so she took a drink of alcohol and immediately started having intense searing burning pain in her epigastric region again. His been going on for several weeks. She usually drinks daily mixed drinks. She used to smoke 2 packs of cigarettes a day but now the smoking hurts her belly as well so she has slowed down. [facility]. She's having nausea but she has not vomited. No diarrhea. She has had tubal ligation, hysterectomy, . She denies any trauma or feeling unsafe at home. She's never had an EGD before. She was put on Protonix and Carafate which she has been taking but she says it is not helping with the pain presently. She does apparently take Latuda and a benzodiazepine for psychiatric reasons. She follows with Dr. funes. When her abdominal pain was getting worse she called her GI doctor but they said she had a referral. She called her primary care doctor but it wouldn't be for another couple weeks before he can see her so she just went to the ER at [facility] to be seen and worked up and get a referral sooner. Allergies and Home Medications Allergies Coded Allergies: No Known Drug Allergies (Unverified , 07/17/18) Home Medications Famotidine 20 Mg Tablet, 20 MG PO BID Prescribed by: PATRICIA LAMB on 07/17/181819 Hydrocodone Bit/Acetaminophen 1 Tab Tab, 1 EACH PO Q4-6HR PRN for PAIN-MODERATE Prescribed by: ADARSH AVITIA on 08/20/181936 Ondansetron 4 Mg Tab.rapdis, 4 MG PO Q6H PRN for NAUSEA/VOMITING Prescribed by: PATRICIA LAMB on 07/17/181820 Ondansetron 4 Mg Tab.rapdis, 4 MG PO Q6H PRN for NAUSEA/VOMITING-1ST LINE Prescribed by: ADRASH AVITIA on 08/20/181936 Pantoprazole Sodium 40 Mg Tablet.dr, 40 MG PO BID Prescribed by: ADARSH AVITIA on 08/20/181936 Tramadol HCl 50 Mg Tablet, 50-100 MG PO Q6H PRN for PAIN-MILD TO MODERATE Prescribed by: PATRICIA LAMB on 07/17/181821 Patient Home Medication List Home Medication List Reviewed: Yes Review of Systems Review of Systems Constitutional: No chills, No diaphoresis EENTM: No Blurred Vision, No Double Vision Respiratory: Denies Cough, Denies Shortness of Air Cardiovascular: Denies Chest Pain, Denies Edema Gastrointestinal: Denies Abdomen Distended; Abdominal Pain, Constipated (ch ronic constipation IBS); Denies Diarrhea; Nausea; Denies Vomiting Genitourinary: Denies Burning, Denies Discharge Musculoskeletal: No back pain, No joint pain Skin: No dryness, No rash Psychiatric/Neurological: Denies Headache, Denies Numbness, Denies Paresthesia Past Mdqwtbg-Vcopox-Imzskp Hx Patient Social History Alcohol Use: Regular Use Alcohol Beverage of Choice: Cheap Liquor Recreational Drug Use: No Smoking Status: Current Everyday Smoker Type Used: Cigarettes (2 ppd) 2nd Hand Smoke Exposure: Yes Recent Foreign Travel: No Contact w/Someone Who Travel: No Recent Hopitalizations: No Seasonal Allergies Seasonal Allergies: No Past Medical History Surgeries: Yes Appendectomy, Hysterectomy Respiratory: No Cardiac: No Neurological: No Genitourinary: No Gastrointestinal: No Musculoskeletal: No Endocrine: No HEENT: No Cancer: No Psychosocial: Yes Anxiety, Depression Integumentary: No Blood Disorders: No Physical Exam Vital Signs Vital Signs - First Documented 08/28/18 22:15 Temp 97.4 Pulse 92 Resp 15 B/P (MAP) 97/77 (84) Pulse Ox 98 O2 Delivery Room Air Capillary Refill : Height/Weight/BMI Height: 5'4.00" Weight: 140lbs. oz. 63.825775ez; BMI Method:Stated General Appearance: WD/WN, mild distress HEENT: PERRL/EOMI, pharynx normal Neck: non-tender, full range of motion, normal inspection Respiratory: lungs clear, normal breath sounds, no respiratory distress, no accessory muscle use Cardiovascular: normal peripheral pulses, regular rate, rhythm, no edema Gastrointestinal: normal bowel sounds, guarding (epigastric region); No rebou nd; tenderness (epigastric region. Negative for McBurney's point tenderness or rebound, Gibbs's sign, Rovsing, psoas or other mesenteric signs) Extremities: normal inspection, no pedal edema, normal capillary refill Neurologic/Psychiatric: alert, oriented x 3, other (modestly upset, tearful at first) Skin: normal color, warm/dry Progress/Results/Core Measures Results/Orders Lab Results Laboratory Tests Test 08/28/18 21:55 08/28/18 22:20 Range/Units Urine Color YELLOW Urine Clarity CLOUDY Urine pH 6.5 5-9 Urine Specific [place] 1.020 1.016-1.022 Urine Protein 1+ H NEGATIVE Urine Glucose (UA) NEGATIVE NEGATIVE Urine Ketones 2+ H NEGATIVE Urine Nitrite NEGATIVE NEGATIVE Urine Bilirubin 2+ H NEGATIVE Urine Urobilinogen 1.0 NORMAL MG/DL Urine Leukocyte Esterase NEGATIVE NEGATIVE Urine RBC (Auto) 1+ H NEGATIVE Urine RBC 5-10 H /HPF Urine WBC 2-5 /HPF Urine Squamous Epithelial Cells >50 H /HPF Urine Crystals PRESENT H /LPF Urine Amorphous Sediment FEW VIVI URATES H /LPF Urine Bacteria NEG /HPF Urine Casts NONE /LPF Urine Mucus MODERATE H /LPF Urine Culture Indicated NO Urine Opiates Screen NEGATIVE NEGATIVE Urine Oxycodone Screen NEGATIVE NEGATIVE Urine Methadone Screen NEGATIVE NEGATIVE Urine Propoxyphene Screen NEGATIVE NEGATIVE Urine Barbiturates Screen NEGATIVE NEGATIVE Ur Tricyclic Antidepressants Screen NEGATIVE NEGATIVE Urine Phencyclidine Screen NEGATIVE NEGATIVE Urine Amphetamines Screen NEGATIVE NEGATIVE Urine Methamphetamines Screen NEGATIVE NEGATIVE Urine Benzodiazepines Screen POSITIVE H NEGATIVE Urine Cocaine Screen NEGATIVE NEGATIVE Urine Cannabinoids Screen NEGATIVE NEGATIVE White Blood Count 7.5 4.3-11.0 10^3/uL Red Blood Count 4.46 4.35-5.85 10^6/uL Hemoglobin 13.6 11.5-16.0 G/DL Hematocrit 39 35-52 % Mean Corpuscular Volume 88 80-99 FL Mean Corpuscular Hemoglobin 30 25-34 PG Mean Corpuscular Hemoglobin Concent 35 32-36 G/DL Red Cell Distribution Width 13.0 10.0-14.5 % Platelet Count 240 130-400 10^3/uL Mean Platelet Volume 11.0 H 7.4-10.4 FL Neutrophils (%) (Auto) 47 42-75 % Lymphocytes (%) (Auto) 43 12-44 % Monocytes (%) (Auto) 7 0-12 % Eosinophils (%) (Auto) 3 0-10 % Basophils (%) (Auto) 1 0-10 % Neutrophils # (Auto) 3.5 1.8-7.8 X 10^3 Lymphocytes # (Auto) 3.2 1.0-4.0 X 10^3 Monocytes # (Auto) 0.5 0.0-1.0 X 10^3 Eosinophils # (Auto) 0.2 0.0-0.3 10^3/uL Basophils # (Auto) 0.1 0.0-0.1 10^3/uL Sodium Level 142 135-145 MMOL/L Potassium Level 3.5 L 3.6-5.0 MMOL/L Chloride Level 101 98-107 MMOL/L Carbon Dioxide Level 25 21-32 MMOL/L Anion Gap 16 H 5-14 MMOL/L Blood Urea Nitrogen 10 7-18 MG/DL Creatinine 0.80 0.60-1.30 MG/DL Estimat Glomerular Filtration Rate > 60 BUN/Creatinine Ratio 13 Glucose Level 104 70-105 MG/DL Calcium Level 9.2 8.5-10.1 MG/DL Corrected Calcium 8.5-10.1 MG/DL Total Bilirubin 0.4 0.1-1.0 MG/DL Aspartate Amino Transf (AST/SGOT) 14 5-34 U/L Alanine Aminotransferase (ALT/SGPT) 13 0-55 U/L Alkaline Phosphatase 75 40-136 U/L Total Protein 7.9 6.4-8.2 GM/DL Albumin 4.7 H 3.2-4.5 GM/DL Lipase 15 8-78 U/L Serum Alcohol < 10 <10 MG/DL My Orders Orders - ZOLTAN MANN Ua Culture If Indicated (08/28/18 21:54) Drug Screen Stat (Urine) (08/28/18 21:54) Cbc With Automated Diff (08/28/18 22:18) Comprehensive Metabolic Panel (08/28/18 22:18) Lipase (08/28/18 22:18) Alcohol (08/28/18 22:18) Ondansetron Injection (Zofran Injectio (08/28/18 22:30) Ed Iv/Invasive Line Start (08/28/18 22:18) Lidocaine 2% Viscous 15 Ml (Xylocaine Vi (08/28/18 22:30) Famotidine Tablet (Pepcid Tablet) (08/28/18 22:18) Ns Iv 1000 Ml (Sodium Chloride 0.9%) (08/28/18 22:18) Antacid Suspension (Mylanta Suspension (08/28/18 22:30) Ketorolac Injection (Toradol Injection) (08/28/18 23:15) Fentanyl Injection (Sublimaze Injection (08/28/18 23:45) Ct Abdomen/Pelvis W (08/28/18 23:44) Hydrocodone/Apap 5/325 Tablet (Lortab 5 (08/29/18 00:00) Medications Given in ED Current Medications Medications Dose Ordered Sig/Tejas Route Start Time Stop Time Status Last Admin Dose Admin Al Hydrox/Mg Hydrox/Simethicone 30 ml ONCE ONCE PO 08/28/18 22:30 08/28/18 22:31 DC 08/28/18 22:42 30 ML Ketorolac Tromethamine 30 mg ONCE ONCE IVP 08/28/18 23:15 08/28/18 23:16 DC 08/28/18 23:15 30 MG Lidocaine HCl 15 ml ONCE ONCE PO 08/28/18 22:30 08/28/18 22:31 DC 08/28/18 22:42 15 ML Ondansetron HCl 8 mg ONCE ONCE IVP 08/28/18 22:30 08/28/18 22:31 DC 08/28/18 22:37 8 MG Vital Signs/I&O 08/28/18 22:15 Temp 97.4 Pulse 92 Resp 15 B/P (MAP) 97/77 (84) Pulse Ox 98 O2 Delivery Room Air Progress Progress Note #1: Time: 22:32 Progress Note Plan to give the patient some Zofran and then we will give her a GI cocktail. Suspects she has alcoholic gastritis versus pancreatitis. Check labs give her a liter fluids as her blood pressure is soft around 100 systolic. Her heart rates in the 70s however which is less concerning. We will trial Toradol if the GI cocktail was not successful. UA and UDS. Urinalysis did demonstrate some microscopic hematuria which she says she is not aware of having in the past. She does not have a uterus and denies a history of kidney stones. She is not having any significant tenderness over her CVA on percussion. We will suggest that she follow up outpatient has asymptomatic microscopic hematuria. Progress Note #2: Time: 23:12 Progress Note The patient states the GI cocktail only made her abdomen hurt worse. We've ruled out pancreatitis. We have offered to do a CT scan but she has declined since she had ultrasound yesterday. She just wants something to help with her pain. She is tearful but she has also been having a heated conversation over the phone with presumably her . She does not want to talk much about that and resists any attempts to delve deeper into it. We offered her something that might help calm her down since she uses Valium routinely but she has declined that saying she just wants something to help with the pain. Toradol 30 mg IV. Progress Note #3: Time: 23:45 Progress Note Toradol did help her pain come down from a 7 to a 6. She took her own IV out. Says she still wants something for pain. She is refusing another IV or a CT scan this time so or any give her a [place] and set her up with a few tablets and allow her to go home. The patient states her is coming to pick her up. She says she feels safe and does not have any suicidal thoughts. She is says she is not going to use the pain medicine to harm herself only to treat her pain. We have encouraged her to return to the ER if her pain becomes unbearable or she has other concerns otherwise follow up with Dr. Funes and her GI appointment in 1 week. Departure Impression Primary Impression: Alcoholic gastritis without bleeding Qualified Codes: K29.20 - Alcoholic gastritis without bleeding Disposition: 01 HOME, SELF-CARE Condition: Improved Departure-Patient Inst. Decision time for Depature: 23:50 Referrals: PAT FUNES MD (PCP) Primary Care Physician Patient Instructions: Gastritis (DC) Add. Discharge Instructions: Continue to use the Carafate and the pantoprazole. You can use Maalox or Tums as needed for breakthrough burning pain. You can use Tylenol 650 mg every 8 hours as needed for pain. If you still have significant breakthrough pain you may use one tablet of the hydrocodone every 6 hours as needed. Follow-up with Dr. Funes as needed. Keep your follow-up appointment with the GI doctor next week. If you have other concerns or intractable pain please return to the ER. All discharge instructions reviewed with patient and/or family. Voiced understanding. Scripts Hydrocodone Bit/Acetaminophen (Hydrocodone/Acetaminophen 5/325mg Tablet) 1 Tab Tab 1 EACH PO Q4-6HR PRN for PAIN-MODERATE MDD 10, #10 TAB 0 Refills Prov: ZOLTAN MANN 08/28/18 Work/School Note: Work Release Form Date Seen in the Emergency Department: Aug 28, 2018 Return to Work: Aug 30, 2018 Restrictions: No Restrictions Copy Copies To 1: PAT FUNES MD, TITUS J Aug 28, 2018 22:31
[2018-08-28 22:48] LABS: CARBON DIOXIDE 25 MMOL/L (21-32); CHLORIDE 101 MMOL/L (98-107); POTASSIUM 3.5 MMOL/L (3.6-5.0); SODIUM 142 MMOL/L (135-145)
[2018-08-28 22:49] LABS: ALANINE AMINOTRANSFERASE 13 U/L (0-55); ALBUMIN 4.7 GM/DL (3.2-4.5); ALKALINE PHOSPHATASE 75 U/L (40-136); BILIRUBIN,TOTAL 0.4 MG/DL (0.1-1.0); BUN/CREATININE RATIO 13; CALCIUM 9.2 MG/DL (8.5-10.1); GFR ESTIMATED > 60; GLUCOSE 104 MG/DL (70-105); LIPASE 15 U/L (8-78); TOTAL PROTEIN 7.9 GM/DL (6.4-8.2)
[2018-08-28] MEDS ORDERED: KETOROLAC 30 MG/ML VIAL IVP ONE (23:15)
[2018-08-28] MEDS ORDERED: fentaNYL INJECTION 100 MCG/2 ML AMP IVP ONE (23:45)
[2018-08-28] MEDS ORDERED: ACHD5005 PO (23:52)
[2018-08-28 23:57] VITALS: BP 99/56
[2018-08-29] MEDS ORDERED: HYDROcodone/APAP 5 MG/325 MG (LORTAB) TAB PO ONE
[2018-08-29] MEDS ORDERED: HOLD METFORMIN - RECEIVED CONTRAST 20 ML VIAL IV SCH
[2018-08-29] MEDS ORDERED: IOHEXOL 350 MG/ML 100 ML (OMNIPAQUE 350) VIAL IV ONE
[2018-08-29] MEDS ORDERED: NS 100 ML (IVPB) BAG IV ONE
[2018-08-29] MEDS ORDERED: RX-HYDROCODONE/APAP 5/325 MG #4 TAB PK PO PRN
== END 2018-08-29 | disposition home or self-care (01) ==
LOC: EDUNIT# 21:45 → ER FS 21:48
DX: K29.20 Alcoholic gastritis without bleeding (principal); F41.9 Anxiety disorder, unspecified; F32.9 Major depressive disorder, single episode, unspecified; F17.210 Nicotine dependence, cigarettes, uncomplicated; Z90.49 Acquired absence of other specified parts of digestive tract; Z90.710 Acquired absence of both cervix and uterus
CPT/HCPCS: 36415; 80053; 80306; 80320; 81000; 83690; 85025; 96361; 96374; 96375; 99283

== ENCOUNTER 2018-09-04 20:20 | Emergency (ER) | payer SELFPAY ==
[~2018-09-04] VITALS: Ht 162.6 cm; Wt 61.7 kg
--- OUTSIDE RECORDS SUMMARY | 2018-09-04 20:25 | XMS REPORT | Continuity of Care Document ---
Author Organization Unknown Address Unknown Allergies Active Description Code Type Severity Reaction Onset Reported/Identified Relationship to Patient Clinical Status Yes NO NAME AVAILABLE 68517 DRUG N/A N/A Yes No Known Drug Allergies [id number] Drug Allergy Unknown N/A 07/17/2018 Medications Medication [...] Code Diagnosis Diagnosed By 05/30/2016 GEETHABETHANIE V 108001 Suicidal BETHANIE INIGUEZ 05/30/2016 GEETHABETHANIE V F32.2 Major depressive disorder, single episode, severe without psychotic features (HCC) BETHANIE INIGUEZ 05/30/2016 IRAISJAEELAINA MiguelBETHANIE P T50.902A Poisoning by unspecified drugs, medicaments and biological substances, intentional self-harm, initial encounter (HCC) ELAINA INIGUEZKILA 09/04/2017 JUSTIN LEACH V [id number] Suicidal 09/04/2017 JUSTIN LEACH V F10.99 Alcohol [...] unspecified (HCC) 09/04/2017 JUSTIN LEACH Z79.899 Other fpc (current) drug therapy 09/04/2017 JUSTIN LEACH Z86.59 Personal history of other mental and behavioral disorders 09/04/2017 JUSTIN LEACH Z90.710 Acquired absence of both cervix and uterus 09/04/2017 JUSTIN LEACH Z91.5 Personal history of self-harm 09/04/2017 JUSTIN LEACH Z98.51 Tubal ligation status 07/17/2018 PATRICIA LAMB DO Ot R07.9 CHEST PAIN, UNSPECIFIED 08/22/2018 ADARSH AVITIA DO, Ot F32.9 MAJOR DEPRESSIVE DISORDER, SINGLE EPISOD 08/22/2018 ADARSH AVITIA DO, Ot F41.9 ANXIETY DISORDER, UNSPECIFIED 08/22/2018 ADARSH AVITIA DO Ot R10.13 EPIGASTRIC PAIN 08/22/2018 ADARSH AVITIA DO, Ot Z77.22 CNTCT W AND EXPSR TO ENVIRON TOBACCO SMO 08/22/2018 ADARSH AVITIA DO, Ot Z90.49 ACQUIRED ABSENCE OF OTHER SPECIFIED PART 08/22/2018 ADARSH AVITIA DO, Ot Z90.710 ACQUIRED ABSENCE OF BOTH CERVIX AND UTER 09/03/2018 ZOLTAN MANN MD Ot F17.210 NICOTINE DEPENDENCE, CIGARETTES, UNCOMPL 09/03/2018 ZOLTAN MANN MD Ot F32.9 MAJOR DEPRESSIVE DISORDER, SINGLE EPISOD 09/03/2018 ZOLTAN MANN MD Ot F41.9 ANXIETY DISORDER, UNSPECIFIED 09/03/2018 ZOLTAN MANN MD Ot K29.20 ALCOHOLIC GASTRITIS WITHOUT BLEEDING 09/03/2018 ZOLTAN MANN MD Ot R10.13 EPIGASTRIC PAIN 09/03/2018 ZOLTAN MANN MD Ot Z90.49 ACQUIRED ABSENCE OF OTHER SPECIFIED PART 09/03/2018 ZOLTAN MANN MD Ot Z90.710 ACQUIRED ABSENCE OF BOTH CERVIX [...] urinalysis with reflex to culture NO NRG Urine drug screening test - 08/28/18 21:55 Urine phencyclidine detection by screening method NEGATIVE NEGATIVE Urine benzodiazepines detection by screening method POSITIVE NEGATIVE Urine cocaine detection NEGATIVE NEGATIVE Urine amphetamines detection by screening method NEGATIVE NEGATIVE Urine methamphetamine detection by screening method NEGATIVE NEGATIVE Urine cannabinoids detection by screening method NEGATIVE NEGATIVE Urine opiates detection by screening method NEGATIVE NEGATIVE Urine barbiturates detection NEGATIVE NEGATIVE Screening urine tricyclic antidepressants detection NEGATIVE NEGATIVE Urine methadone detection by screening method NEGATIVE NEGATIVE Urine oxycodone detection NEGATIVE NEGATIVE Urine propoxyphene detection NEGATIVE NEGATIVE Complete urinalysis with reflex to culture - 08/28/18 21:55 Urine color determination YELLOW NRG Urine clarity determination CLOUDY NRG Urine pH measurement by test strip 6.5 5-9 Specific gravity of urine by test strip 1.020 1.016-1.022 Urine protein assay by test strip, semi-quantitative 1+ NEGATIVE Urine glucose detection by automated test strip NEGATIVE NEGATIVE Erythrocytes detection in urine sediment by light microscopy 1+ NEGATIVE Urine ketones detection by automated test strip 2+ NEGATIVE Urine nitrite detection by test strip NEGATIVE NEGATIVE Urine total bilirubin detection by test strip 2+ NEGATIVE Urine urobilinogen measurement by automated test strip (mass/volume) 1.0 mg/dL NORMAL Urine leukocyte esterase detection by dipstick NEGATIVE NEGATIVE Automated urine sediment erythrocyte count by microscopy (number/high power field) [HPF] NRG Automated urine sediment leukocyte count by microscopy (number/high power field) [HPF] NRG Bacteria detection in urine sediment by light microscopy NEG NRG Squamous epithelial cells detection in urine sediment by light microscopy >50 NRG Crystals detection in urine sediment by light microscopy PRESENT NRG Casts detection in urine sediment by light microscopy NONE NRG Mucus detection in urine sediment by light microscopy MODERATE NRG Complete urinalysis with reflex to culture NO NRG Amorphous sediment detection in urine sediment by light microscopy FEW VIVI URATES NRG Complete blood count (CBC) with automated white blood cell (WBC) differential - 08/28/18 22:20 Blood leukocytes automated count (number/volume) 7.5 10*3/uL 4.3-11.0 Blood erythrocytes automated count (number/volume) 4.46 10*6/uL 4.35-5.85 Venous blood hemoglobin measurement (mass/volume) 13.6 g/dL 11.5-16.0 Blood hematocrit (volume fraction) 39 % 35-52 Automated erythrocyte mean corpuscular volume 88 [foz_us] 80-99 Automated erythrocyte mean corpuscular hemoglobin (mass per erythrocyte) 30 pg 25-34 Automated erythrocyte mean corpuscular hemoglobin concentration measurement (mass/volume) 35 g/dL 32-36 Automated erythrocyte distribution width ratio 13.0 % 10.0- 14.5 Automated blood platelet count (count/volume) 240 10*3/uL 130-400 Automated blood platelet mean volume measurement 11.0 [foz_us] 7.4-10.4 Automated blood neutrophils/100 leukocytes 47 % 42-75 Automated blood lymphocytes/100 leukocytes 43 % 12-44 Blood monocytes/100 leukocytes 7 % 0-12 Automated blood eosinophils/100 leukocytes 3 % 0-10 Automated blood basophils/100 leukocytes 1 % 0-10 Blood neutrophils automated count (number/volume) 3.5 10*3 1.8-7.8 Blood lymphocytes automated count (number/volume) 3.2 10*3 1.0-4.0 Blood monocytes automated count (number/volume) 0.5 10*3 0.0- 1.0 Automated eosinophil count 0.2 10*3/uL 0.0-0.3 Automated blood basophil count (count/volume) 0.1 10*3/uL 0.0-0.1 Comprehensive metabolic panel - 08/28/18 22:20 Serum or plasma sodium measurement (moles/volume) 142 mmol/L 135-145 Serum or plasma potassium measurement (moles/volume) 3.5 mmol/L 3.6-5.0 Serum or plasma chloride measurement (moles/volume) 101 mmol/L 98-107 Carbon dioxide 25 mmol/L 21-32 Serum or plasma anion gap determination (moles/volume) 16 mmol/L 5-14 Serum or plasma urea nitrogen measurement (mass/volume) 10 mg/dL 7-18 Serum or plasma creatinine measurement (mass/volume) 0.80 mg/dL 0.60-1.30 Serum or plasma urea nitrogen/creatinine mass ratio 13 NRG Serum or plasma creatinine measurement with calculation of estimated glomerular filtration rate > NRG Serum or plasma glucose measurement (mass/volume) 104 mg/dL 70-105 Serum or plasma calcium measurement (mass/volume) 9.2 mg/dL 8.5-10.1 Serum or plasma total bilirubin measurement (mass/volume) 0.4 mg/dL 0.1-1.0 Serum or plasma alkaline phosphatase measurement (enzymatic activity/volume) 75 U/L 40-136 Serum or plasma aspartate aminotransferase measurement (enzymatic activity/volume) 14 U/L 5-34 Serum or plasma alanine aminotransferase measurement (enzymatic activity/volume) 13 U/L 0-55 Serum or plasma protein measurement (mass/volume) 7.9 g/dL 6.4-8.2 Serum or plasma albumin measurement (mass/volume) 4.7 g/dL 3.2-4.5 Lipase - 08/28/18 22:20 Lipase 15 U/L 8-78 Serum or plasma ethanol measurement (mass/volume) - 08/28/18 22:20 Serum or plasma ethanol measurement (mass/volume) < mg/dL <10 Encounters ACCT No. Visit Date/Time Discharge Status Pt. Type Provider Facility Loc./Unit Complaint [id number] 07/19/2018 14:00:00 07/19/2018 23:59:59 CLS Outpatient [facility] [id number] 08/31/2017 10:42:00 09/04/2017 10:53:00 DIS Inpatient JUSTIN LEACH [facility] [id number] 05/27/2016 04:37:00 05/30/2016 16:53:00 DIS Inpatient BETHANIE INIGUEZ [facility] VN [id number] 05/27/2016 06:27:52 Document Registration [id number] 08/28/2018 21:48:00 08/29/2018 00:00:00 DIS Outpatient ZOLTAN MANN MD [facility] FS ABD PAIN [id number] 08/20/2018 17:58:00 08/20/2018 19:50:00 DIS Outpatient ADARSH AVITIA DO [facility] FS ABD PAIN, VOMITING [id number] 07/17/2018 15:13:00 07/17/2018 18:52:00 DIS Emergency PATRICIA LAMB DO [facility] FS CHEST PAIN,WEAK, FAINTED EARLIER TODAY
[2018-09-04] MEDS ORDERED: METOCLOPRAMIDE INJ 10 MG/2 ML (REGLAN) IVP STA (20:34)
[2018-09-04] MEDS ORDERED: NS IV 1000 ML 1,000 ML IV SCH (20:34)
[2018-09-04] MEDS ORDERED: PANTOPRAZOLE 40 MG (PROTONIX) VIAL IV STA (20:34)
--- NOTE | 2018-09-04 20:43 | ED General ---
General Chief Complaint: Psych/Social Disorder Stated Complaint: POSS OVERDOSE Source of Information: Patient History of Present Illness Date Seen by Provider: Sep 04, 2018 Time Seen by Provider: 20:20 Initial Comments 43-year-old female presenting with complaints of depression, chronic abdominal pain with nausea and vomiting, urinary hesitancy, medication overdose. She states that she has been feeling depressed and having suicidal thoughts for the last several days. Tonight she took approximately 10 and a quite [id number] sleeping aids from [employer]. She thinks that they were diphenhydramine. She does not have a bottle with her. She denied taking any other medications. She does follow with [facility] for her depression and anxiety. She has not seen them are talked to him recently about her depression or suicidal ideation. She follows with Dr. Funes in the clinic for her other medical conditions but has not seen him about her chronic abdominal pain and chronic nausea and vomiting. She has not been taking her Protonix or Carafate because she is out of them. She states that she has been having some mucousy stools today but usually is constipated. She had her bring her [facility] because of taking the sleeping pills but did not tell him that she was suicidal. He dropped her off but did not come into the emergency department. She states that he was upset with her and did not want to come to the emergency department. She relates that she has previously attempted suicide and has been admitted to psychiatric hospital before but it has been over a year since it has happened. She denies being admitted previously for her abdominal pain and medical conditions. She does have a history of cervical cancer and a partial hysterectomy in the remote past. Allergies and Home Medications Allergies Coded Allergies: No Known Drug Allergies (Unverified , 07/17/18) Home Medications Famotidine 20 Mg Tablet, 20 MG PO BID Prescribed by: PATRICIA LAMB on 07/17/181819 Hydrocodone Bit/Acetaminophen 1 Tab Tab, 1 EACH PO Q4-6HR PRN for PAIN-MODERATE Prescribed by: ADARSH AVITIA on 08/20/181936 Hydrocodone Bit/Acetaminophen 1 Tab Tab, 1 EACH PO Q4-6HR PRN for PAIN-MODERATE Prescribed by: ZOLTAN MANN on 08/28/18 2353 Ondansetron 4 Mg Tab.rapdis, 4 MG PO Q6H PRN for NAUSEA/VOMITING Prescribed by: PATRICIA LAMB on 07/17/181820 Ondansetron 4 Mg Tab.rapdis, 4 MG PO Q6H PRN for NAUSEA/VOMITING-1ST LINE Prescribed by: ADARSH AVITIA on 08/20/181936 Pantoprazole Sodium 40 Mg Tablet.dr, 40 MG PO BID Prescribed by: ADARSH AVITIA on 08/20/181936 Tramadol HCl 50 Mg Tablet, 50-100 MG PO Q6H PRN for PAIN-MILD TO MODERATE Prescribed by: PATRICIA LAMB on 07/17/181821 Patient Home Medication List Home Medication List Reviewed: Yes Review of Systems Review of Systems Constitutional: No chills, No fever; malaise EENTM: other (dry mouth) Respiratory: No cough, No dyspnea on exertion, No short of breath Cardiovascular: No chest pain, No palpitations Gastrointestinal: see HPI Genitourinary: decreased output, hesitancy : No (history of partial hysterectomy) Musculoskeletal: No back pain, No joint pain Skin: No rash Psychiatric/Neurological: Anxiety, Depressed, Weakness (generalized) Hematologic/Lymphatic: No Symptoms Reported Immunological/Allergic: no symptoms reported Past Axuvinc-Svqljn-Fzknic Hx Past Med/Social Hx: Reviewed Nursing Past Med/Soc Hx Patient Social History Alcohol Beverage of Choice: Cheap Liquor Type Used: Cigarettes 2nd Hand Smoke Exposure: Yes Recent Foreign Travel: No Contact w/Someone Who Travel: No Recent Hopitalizations: No Seasonal Allergies Seasonal Allergies: No Past Medical History Surgeries: Yes Appendectomy, Hysterectomy Respiratory: No Cardiac: No Neurological: No Genitourinary: No Gastrointestinal: No Musculoskeletal: No Endocrine: No HEENT: No Cancer: No Psychosocial: Yes Anxiety, Depression Integumentary: No Blood Disorders: No Physical Exam Vital Signs Vital Signs - First Documented 09/04/18 20:26 Temp 97.9 Pulse 119 Resp 18 B/P (MAP) 119/75 (90) Pulse Ox 99 O2 Delivery Room Air Capillary Refill : Height, Weight, BMI Height: 5'4.00" Weight: 138lbs. oz. 62.214798aj; BMI Method:Stated General Appearance: No Apparent Distress, Thin HEENT: PERRL/EOMI; No Pharyngeal Erythema, No Photophobia, No Tonsillar Exudate; Other (dry mucous membranes) Neck: Full Range of Motion, Normal Inspection, Non Tender, Supple Respiratory: Chest Non Tender, Lungs Clear, Normal Breath Sounds, No Accessory Muscle Use, No Respiratory Distress Cardiovascular: No Murmur, Normal Peripheral Pulses; No Extra Beats, No JVD; Tachycardia Gastrointestinal: Normal Bowel Sounds, No Pulsatile Mass, Soft; No Distended, No Guarding, No Mass; Tenderness (diffuse tenderness but worse in the epigastric area) Rectal: Deferred Back: No CVA Tenderness Extremity: Normal Capillary Refill, Normal Range of Motion, Non Tender, No Calf Tenderness Neurologic/Psychiatric: Alert, Oriented x3, No Motor/Sensory Deficits, Depressed Affect Skin: Normal Color, Warm/Dry Progress/Results/Core Measures Suspected Sepsis SIRS Temperature: Pulse: Respiratory Rate: Laboratory Tests 09/04/18 20:30: White Blood Count 8.2 Blood Pressure / Mean: Laboratory Tests 09/04/18 20:30: Creatinine 0.84, Platelet Count 261, Total Bilirubin 0.4 Results/Orders Lab Results Laboratory Tests Test 09/04/18 20:30 09/04/18 21:50 Range/Units White Blood Count 8.2 4.3-11.0 10^3/uL Red Blood Count 4.53 4.35-5.85 10^6/uL Hemoglobin 13.9 11.5-16.0 G/DL Hematocrit 40 35-52 % Mean Corpuscular Volume 88 80-99 FL Mean Corpuscular Hemoglobin 31 25-34 PG Mean Corpuscular Hemoglobin Concent 35 32-36 G/DL Red Cell Distribution Width 13.2 10.0-14.5 % Platelet Count 261 130-400 10^3/uL Mean Platelet Volume 11.1 H 7.4-10.4 FL Neutrophils (%) (Auto) 48 42-75 % Lymphocytes (%) (Auto) 44 12-44 % Monocytes (%) (Auto) 6 0-12 % Eosinophils (%) (Auto) 2 0-10 % Basophils (%) (Auto) 1 0-10 % Neutrophils # (Auto) 3.9 1.8-7.8 X 10^3 Lymphocytes # (Auto) 3.6 1.0-4.0 X 10^3 Monocytes # (Auto) 0.5 0.0-1.0 X 10^3 Eosinophils # (Auto) 0.1 0.0-0.3 10^3/uL Basophils # (Auto) 0.0 0.0-0.1 10^3/uL Sodium Level 141 135-145 MMOL/L Potassium Level 3.7 3.6-5.0 MMOL/L Chloride Level 100 98-107 MMOL/L Carbon Dioxide Level 24 21-32 MMOL/L Anion Gap 17 H 5-14 MMOL/L Blood Urea Nitrogen 10 7-18 MG/DL Creatinine 0.84 0.60-1.30 MG/DL Estimat Glomerular Filtration Rate > 60 BUN/Creatinine Ratio 12 Glucose Level 118 H 70-105 MG/DL Calcium Level 9.0 8.5-10.1 MG/DL Corrected Calcium 8.7 8.5-10.1 MG/DL Magnesium Level 2.1 1.8-2.4 MG/DL Total Bilirubin 0.4 0.1-1.0 MG/DL Aspartate Amino Transf (AST/SGOT) 13 5-34 U/L Alanine Aminotransferase (ALT/SGPT) 8 0-55 U/L Alkaline Phosphatase 73 40-136 U/L Total Protein 7.5 6.4-8.2 GM/DL Albumin 4.4 3.2-4.5 GM/DL Lipase 11 8-78 U/L Serum Test, Qualitative NEGATIVE NEGATIVE Salicylates Level 0.4 L 5.0-20.0 MG/DL Acetaminophen Level < 10 L 10-30 UG/ML Serum Alcohol < 10 <10 MG/DL Urine Color YELLOW Urine Clarity CLEAR Urine pH 7.0 5-9 Urine Specific Clare <=1.005 1.016-1.022 Urine Protein NEGATIVE NEGATIVE Urine Glucose (UA) NEGATIVE NEGATIVE Urine Ketones NEGATIVE NEGATIVE Urine Nitrite NEGATIVE NEGATIVE Urine Bilirubin NEGATIVE NEGATIVE Urine Urobilinogen 0.2 NORMAL MG/DL Urine Leukocyte Esterase NEGATIVE NEGATIVE Urine RBC (Auto) TRACE H NEGATIVE Urine RBC RARE /HPF Urine WBC RARE /HPF Urine Squamous Epithelial Cells RARE /HPF Urine Crystals NONE /LPF Urine Bacteria NEGATIVE /HPF Urine Casts NONE /LPF Urine Mucus NONE /LPF Urine Culture Indicated NO Urine Opiates Screen NEGATIVE NEGATIVE Urine Oxycodone Screen NEGATIVE NEGATIVE Urine Methadone Screen NEGATIVE NEGATIVE Urine Propoxyphene Screen NEGATIVE NEGATIVE Urine Barbiturates Screen NEGATIVE NEGATIVE Ur Tricyclic Antidepressants Screen NEGATIVE NEGATIVE Urine Phencyclidine Screen NEGATIVE NEGATIVE Urine Amphetamines Screen NEGATIVE NEGATIVE Urine Methamphetamines Screen NEGATIVE NEGATIVE Urine Benzodiazepines Screen POSITIVE H NEGATIVE Urine Cocaine Screen NEGATIVE NEGATIVE Urine Cannabinoids Screen NEGATIVE NEGATIVE My Orders Orders - ENYART,NUVIA E MD Ua Culture If Indicated (09/04/18 20:34) Cbc With Automated Diff (09/04/18 20:34) Comprehensive Metabolic Panel (09/04/18 20:34) Alcohol (09/04/18 20:34) Drug Screen Stat (Urine) (09/04/18 20:34) Acetaminophen (09/04/18 20:34) Salicylate (09/04/18 20:34) Ekg Tracing (09/04/18 20:34) Ed Iv/Invasive Line Start (09/04/18 20:34) Monitor-Rhythm Ecg Trace Only (09/04/18 20:34) Bh Status Checks/Observation Q15M (09/04/18 20:34) Ns Iv 1000 Ml (Sodium Chloride 0.9%) (09/04/18 20:34) Lipase (09/04/18 20:34) Magnesium (09/04/18 20:34) Hcg,Qualitative Serum (09/04/18 20:34) Ct Abdomen/Pelvis W (09/04/18 20:34) Pantoprazole Injection (Protonix Injecti (09/04/18 20:34) Metoclopramide Injection (Reglan Injecti (09/04/18 20:34) Iohexol Injection (Omnipaque 350 Mg/Ml 1 (09/04/18 21:00) Received Contrast (Hold Metformin- Contr (09/04/18 21:00) Ns (Ivpb) (Sodium Chloride 0.9% Ivpb Bag (09/04/18 21:00) Bladder Scan (09/04/18 21:40) Straight Cath For Spec.-Adult (09/04/18 21:40) Medications Given in ED Current Medications Medications Dose Ordered Sig/Tejas Route Start Time Stop Time Status Last Admin Dose Admin Iohexol 100 ml ONCE ONCE IV 09/04/18 21:00 09/04/18 21:01 DC 09/04/18 21:16 100 ML Sodium Chloride 100 ml ONCE ONCE IV 09/04/18 21:00 09/04/18 21:01 DC 09/04/18 21:16 100 ML Vital Signs/I&O 09/04/18 09/04/18 09/05/18 20:26 21:53 00:30 Temp 97.9 97.9 Pulse 119 85 74 Resp 18 16 16 B/P (MAP) 119/75 (90) 120/65 (83) 99/63 (75) Pulse Ox 99 100 100 O2 Delivery Room Air Room Air Room Air 09/05/18 00:00 Intake Total 1000 ml Balance 1000 ml Capillary Refill : Progress Note #1: Progress Note With her stating that she is suicidal and depressed Will obtain labs for medical screening. Also will check a CT scan of her abdomen and pelvis to evaluate for other sources of her abdominal pain as part of her medical screening. Provided I am able to medically clear her I will have her evaluated by mental health for disposition from a psychiatric standpoint. Progress Note #2: Time: 22:14 Progress Note Labs are all stable on the patient. She has had 3 ER visits this month for similar complaints about abdominal pain. She did have a CT scan on August 20 that was not showing any acute significant abnormalities. The urine does not show any signs of infection. Her CT scan from [facility] is still pending but on my review of her images does not show any acute significant abnormality. Will contact mental health for a screening. Medically she is clear for evaluation and disposition by mental health. Progress Note #3: Time: 00:14 Progress Note Pt screened by mental health and cleared to have safety plan to go home with her and follow up with outpatient services. She has medicine to poultry picker from pharmacy and at [facility]. She has chronic abdominal pain and has GI doctor to follow up with according to her last visit. No acute findings on her tests tonight to indicate need for admit or emergent referral for her chronic abdominal issues. Have her continue on home medicine and follow up with clinic Once Safety plan is faxed over from screener then will discharge pt to home ECG Initial ECG Impression Date: Sep 04, 2018 Initial ECG Impression Time: 20:29 Initial ECG Rate: 103 Initial ECG Rhythm: S.Tach Initial ECG Comparisson: Unchanged Comment Sinus tachycardia with rate of 103 bpm. MS interval 107 ms. QT interval 451 ms and QT corrected interval of 591 ms. She has low voltage QRS. There is no acute ST elevation. She does have T-wave flattening. There is no change when compared to prior tracing from 17 Jul 2018. Diagnostic Imaging Diagonstic Imaging: CT Plain Films/CT/US/NM/MRI: abdomen, pelvis Comments NAME: ADA PALOMARES REC#: [id number] PT STATUS: REG ER : 1975 PHYSICIAN: NUVIA COSBY MD ADMIT DATE: 09/04/18/ER FS Signed Date of Exam:09/04/18 CT ABDOMEN/PELVIS W PROCEDURE: CT abdomen and pelvis with contrast. TECHNIQUE: Multiple contiguous axial images were obtained through the abdomen and pelvis after administration of intravenous contrast. Auto Exposure Controls were utilized during the CT exam to meet ALARA standards for radiation dose reduction. INDICATION: Upper abdomen pain for a month, history of partial hysterectomy and history of cervical cancer. EXAMINATION: CT of the abdomen and the pelvis with contrast 09/04/2018 COMPARISON: 08/20/2018 FINDINGS: Again noted is a hyperdensity within the right lobe of the liver best seen on the early phase imaging and not as well-seen on delayed phase imaging, likely a flash filling hemangioma, stable since recent examination; this could be followed to assure stability. Remaining liver demonstrates a very tiny similar process along the posterior border of the right lobe towards the dome. This is also stable. There is diffuse fatty infiltration throughout the remaining liver. The gallbladder is unremarkable. The spleen unremarkable. The pancreas and adrenal glands normal. Kidneys unremarkable. Findings of constipation throughout the colon. There is postoperative change throughout the pelvis and in the right lower quadrant, also in the left lower quadrant. No acute inflammatory process is seen about the bowel loops. Air along the region of the cervix is noted and similar to prior imaging; correlate clinically, perhaps due to recent instrumentation. Both kidneys demonstrate no acute abnormality. No obstructive process. Tiny cystic changes noted in the right ovary likely physiologic. The osseous structures are stable. The visualized lung bases demonstrate chronic findings. IMPRESSION: 1. Diffuse stable changes throughout the abdomen and pelvis with 2 hyperdensities on early phase imaging throughout the liver, likely flash filling hemangioma. However, this could be followed to assure stability. No history of prior carcinoma. 2. Other incidental findings as discussed above and unchanged from prior. Dictated by: Dictated on workstation # [id number] Dict: 09/04/184 Trans: 09/04/182231 [facility] [id number] Interpreted by: YISSEL HOWE MD Electronically signed by: YISSEL HOWE MD 09/04/182231 Reviewed: Reviewed by Me (and radiology reading) Departure Impression Primary Impression: Depression with suicidal ideation Additional Impression: Abdominal pain, chronic, epigastric Disposition: HOME, SELF-CARE Condition: Stable Departure-Patient Inst. Decision time for Depature: 00:23 Referrals: PAT FUNES MD (PCP) Primary Care Physician Patient Instructions: CHRONIC PAIN, Depression, Adult (DC), Ulcer and Gastritis Diet Add. Discharge Instructions: Follow up with Mental Health for your medicines and counseling. Follow the Safety plan from Mental Health. Take your medicine as prescribed Check with Dr. Funes and GI about your chronic abdominal pain All discharge instructions reviewed with patient and/or family. Voiced understanding. NUVIA COSBY MD Sep 04, 2018 20:43
[2018-09-04 20:50] LABS: BASOPHILS % (AUTO) 1 % (0-10); EOSINOPHILS % (AUTO) 2 % (0-10); HEMATOCRIT 40 % (35-52); HEMOGLOBIN 13.9 G/DL (11.5-16.0); LYMPHOCYTES # (AUTO) 3.6 X 10^3 (1.0-4.0); LYMPHOCYTES % (AUTO) 44 % (12-44); MEAN CORPUSCULAR HEMOGLOBIN 31 PG (25-34); MEAN CORPUSCULAR HGB CONC 35 G/DL (32-36); MEAN CORPUSCULAR VOLUME 88 FL (80-99); MEAN PLATELET VOLUME 11.1 FL (7.4-10.4); MONOCYTES # (AUTO) 0.5 X 10^3 (0.0-1.0); MONOCYTES % (AUTO) 6 % (0-12); NEUTROPHILS # (AUTO) 3.9 X 10^3 (1.8-7.8); NEUTROPHILS % (AUTO) 48 % (42-75); PLATELET COUNT 261 10^3/uL (130-400); RED CELL DISTRIBUTION WIDTH 13.2 % (10.0-14.5); WHITE BLOOD COUNT 8.2 10^3/uL (4.3-11.0)
[2018-09-04 20:51] LABS: EOSINOPHILS # (AUTO) 0.1 10^3/uL (0.0-0.3)
[2018-09-04] MEDS ORDERED: IOHEXOL 350 MG/ML 100 ML (OMNIPAQUE 350) VIAL IV ONE (21:00)
[2018-09-04] MEDS ORDERED: HOLD METFORMIN - RECEIVED CONTRAST 20 ML VIAL IV SCH (21:00)
[2018-09-04] MEDS ORDERED: NS 100 ML (IVPB) BAG IV ONE (21:00)
[2018-09-04 21:05] LABS: CARBON DIOXIDE 24 MMOL/L (21-32); CHLORIDE 100 MMOL/L (98-107); POTASSIUM 3.7 MMOL/L (3.6-5.0); SODIUM 141 MMOL/L (135-145)
[2018-09-04 21:06] LABS: ALANINE AMINOTRANSFERASE 8 U/L (0-55); ALBUMIN 4.4 GM/DL (3.2-4.5); ALKALINE PHOSPHATASE 73 U/L (40-136); BILIRUBIN,TOTAL 0.4 MG/DL (0.1-1.0); BUN/CREATININE RATIO 12; CREATININE SERUM 0.84 MG/DL (0.60-1.30); GFR ESTIMATED > 60; GLUCOSE 118 MG/DL (70-105); SALICYLATE 0.4 MG/DL (5.0-20.0); TOTAL PROTEIN 7.5 GM/DL (6.4-8.2)
[2018-09-04 21:07] LABS: ACETAMINOPHEN < 10 UG/ML (10-30); MAGNESIUM 2.1 MG/DL (1.8-2.4)
[2018-09-04 21:53] VITALS: BP 120/65
[2018-09-04 22:03] LABS: BILIRUBIN,URINE NEGATIVE (NEGATIVE); CLARITY,URINE CLEAR; COLOR,URINE YELLOW; GLUCOSE, URINE (UA) NEGATIVE (NEGATIVE); KETONES,URINE NEGATIVE (NEGATIVE); LEUKOCYTE ESTERASE ,URINE NEGATIVE (NEGATIVE); NITRITE,URINE NEGATIVE (NEGATIVE); PROTEIN,URINE NEGATIVE (NEGATIVE); UROBILINOGEN,URINE 0.2 MG/DL (NORMAL)
[2018-09-04 22:04] LABS: BACTERIA,URINE NEGATIVE /HPF; RBC,URINE RARE /HPF; SQUAMOUS EPITHELIAL CELL,UR RARE /HPF; WBC,URINE RARE /HPF
[2018-09-04 22:21] LABS: AMPHETAMINE SCREEN, URINE NEGATIVE (NEGATIVE); BARBITURATE SCREEN URINE NEGATIVE (NEGATIVE); BENZODIAZEPINES SCREEN URINE POSITIVE (NEGATIVE); CANNABINOID SCREEN, URINE NEGATIVE (NEGATIVE); COCAINE SCREEN URINE NEGATIVE (NEGATIVE); METHADONE STAT NEGATIVE (NEGATIVE); METHAMPHETAMINE SCREEN URINE S NEGATIVE (NEGATIVE); OPIATE SCREEN URINE NEGATIVE (NEGATIVE); OXYCODONE STAT NEGATIVE (NEGATIVE); PROPOXYPHENE STAT NEGATIVE (NEGATIVE); TRICYCLIC ANTIDEPRESSANTS SCRE NEGATIVE (NEGATIVE)
--- NOTE | 2018-09-04 22:31 | Diagnostic Imaging Report ---
PROCEDURE: CT abdomen and pelvis with contrast. TECHNIQUE: Multiple contiguous axial images were obtained through the abdomen and pelvis after administration of intravenous contrast. Auto Exposure Controls were utilized during the CT exam to meet ALARA standards for radiation dose reduction. INDICATION: Upper abdomen pain for a month, history of partial hysterectomy and history of cervical cancer. EXAMINATION: CT of the abdomen and the pelvis with contrast 09/04/2018 COMPARISON: 08/20/2018 FINDINGS: Again noted is a hyperdensity within the right lobe of the liver best seen on the early phase imaging and not as well-seen on delayed phase imaging, likely a flash filling hemangioma, stable since recent examination; this could be followed to assure stability. Remaining liver demonstrates a very tiny similar process along the posterior border of the right lobe towards the dome. This is also stable. There is diffuse fatty infiltration throughout the remaining liver. The gallbladder is unremarkable. The spleen unremarkable. The pancreas and adrenal glands normal. Kidneys unremarkable. Findings of constipation throughout the colon. There is postoperative change throughout the pelvis and in the right lower quadrant, also in the left lower quadrant. No acute inflammatory process is seen about the bowel loops. Air along the region of the cervix is noted and similar to prior imaging; correlate clinically, perhaps due to recent instrumentation. Both kidneys demonstrate no acute abnormality. No obstructive process. Tiny cystic changes noted in the right ovary likely physiologic. The osseous structures are stable. The visualized lung bases demonstrate chronic findings. IMPRESSION: 1. Diffuse stable changes throughout the abdomen and pelvis with 2 hyperdensities on early phase imaging throughout the liver, likely flash filling hemangioma. However, this could be followed to assure stability. No history of prior carcinoma. 2. Other incidental findings as discussed above and unchanged from prior. Dictated by: Dictated on workstation # [id number]
--- NOTE | 2018-09-04 22:35 | NUR ---
LASHONDA BAKER CALLED AT THIS TIME AND WILL CALL BACK TO DO PT SCREENING SOON SCREENER IS AVAILABLE.
--- NOTE | 2018-09-05 00:24 | NUR ---
LASHONDA BAKER CALLED AND SAID THE PT HAS MEDS AVAILABLE AT THE PHARMACY AND AT [facility], SHE HAS AN APPOINTMENT WITH HER THERAPIST AND THEY FEEL SHE NEEDS A SAFETY PLAN THAT WILL BE SIGNED AND THE PATIENT WILL NEED TO CALL HER AND HAVE HIM COME AND TAKE HER HOME.
[2018-09-05 00:30] VITALS: BP 99/63
== END 2018-09-05 01:45 | disposition home or self-care (01) ==
LOC: EDUNIT# 20:20 → ER FS 20:21
DX: F32.9 Major depressive disorder, single episode, unspecified (principal); R45.851 Suicidal ideations; R10.13 Epigastric pain; G89.29 Other chronic pain; F41.9 Anxiety disorder, unspecified; Z77.22 Contact with and (suspected) exposure to environmental tobacco smoke (acute) (chronic); Z90.710 Acquired absence of both cervix and uterus; Z90.49 Acquired absence of other specified parts of digestive tract
CPT/HCPCS: 36415; 51701; 74177; 80053; 80306; 80320; 80329; 81000; 83690; 83735; 84703; 85025; 93005; 93041; 96361; 96374; 96375

== ENCOUNTER 2018-12-18 15:59 | Emergency (ER) | payer SELFPAY ==
[~2018-12-18] VITALS: Ht 162.5 cm; Wt 59.0 kg
--- NOTE | 2018-12-18 16:15 | NUR ---
Patient walked outside. was following her. They were in the car. Nava piper went out to car and explained that we called PD to come bring her inside. Pt said she wasn't going in, Nava explained to that he should not leave, because PD has been called due to her overdosing and walking out. Pt and finally walked inside and told Aby she was not coming in and that she did not take the pills. Aby said that when PD gets here she can talk that over with them.
--- NOTE | 2018-12-18 16:28 | NUR ---
Patient finally walked back in ER and currently giving urine sample.
[2018-12-18] MEDS ORDERED: NS IV 1000 ML 1,000 ML IV SCH (16:45)
--- NOTE | 2018-12-18 16:47 | ED General ---
General Stated Complaint: OD History of Present Illness Date Seen by Provider: Dec 18, 2018 Time Seen by Provider: 16:42 Initial Comments Patient presenting to emergency department for evaluation of apparent overdose. She was brought in by significant other after patient reportedly took 5 of her 10 mg Ambien's and 10 of her 5 mg Valiums at approximately 3:30 this afternoon. She said she may have taken some qohf-lhx-jwdxnhc equate version of Benadryl but she does not think it was very much. She reportedly sent text messages to her significant other and her children and grandchildren telling them that she loved them and that she was going to overdose. She has reportedly tried hurting herself in the past by overdosing. She is quite talkative and not drowsy or lethargic at all. She is in no obvious distress. (ADARSH AVITIA DO) Allergies and Home Medications Allergies Coded Allergies: No Known Drug Allergies (Unverified , 07/17/18) Home Medications Famotidine 20 Mg Tablet, 20 MG PO BID Prescribed by: PATRICIA LAMB on 07/17/181819 Hydrocodone Bit/Acetaminophen 1 Tab Tab, 1 EACH PO Q4-6HR PRN for PAIN-MODERATE Prescribed by: ADARSH AVITIA on 08/20/181936 Hydrocodone Bit/Acetaminophen 1 Tab Tab, 1 EACH PO Q4-6HR PRN for PAIN-MODERATE Prescribed by: ZOLTAN MANN on 08/28/182351 Ondansetron 4 Mg Tab.rapdis, 4 MG PO Q6H PRN for NAUSEA/VOMITING Prescribed by: PATRICIA LAMB on 07/17/181820 Ondansetron 4 Mg Tab.rapdis, 4 MG PO Q6H PRN for NAUSEA/VOMITING-1ST LINE Prescribed by: ADARSH AVITIA on 08/20/181936 Pantoprazole Sodium 40 Mg Tablet.dr, 40 MG PO BID Prescribed by: ADARSH AVITIA on 08/20/181936 Tramadol HCl 50 Mg Tablet, 50-100 MG PO Q6H PRN for PAIN-MILD TO MODERATE Prescribed by: PATRICIA LAMB on 07/17/181821 Patient Home Medication List Home Medication List Reviewed: Yes (ADARSH AVITIA DO) Review of Systems Review of Systems Constitutional: no symptoms reported EENTM: no symptoms reported Respiratory: no symptoms reported Cardiovascular: no symptoms reported Gastrointestinal: no symptoms reported Genitourinary: no symptoms reported Musculoskeletal: no symptoms reported Skin: no symptoms reported Psychiatric/Neurological: No Symptoms Reported (ADARSH AVITIA DO) All Other Systems Reviewed Negative Unless Noted: Yes (ADARSH AVITIA DO) Past Exjtfxu-Cqwrek-Ndgijr Hx Patient Social History Alcohol Beverage of Choice: Cheap Liquor Type Used: Cigarettes 2nd Hand Smoke Exposure: Yes Recent Foreign Travel: No Contact w/Someone Who Travel: No Recent Hopitalizations: No (ADARSH AVITIA DO) Seasonal Allergies Seasonal Allergies: No (ADARSH AVITIA DO) Past Medical History Surgeries: Yes Appendectomy, Hysterectomy Respiratory: No Cardiac: No Neurological: No Genitourinary: No Gastrointestinal: No Musculoskeletal: No Endocrine: No HEENT: No Cancer: No Psychosocial: Yes Anxiety, Depression Integumentary: No Blood Disorders: No (ADARSH AVITIA DO) Physical Exam Vital Signs Vital Signs - First Documented 12/18/18 16:42 Temp 36.8 Pulse 97 Resp 16 B/P (MAP) 105/63 (77) Pulse Ox 99 O2 Delivery Room Air (MIRIAM KEARNEY DO) Vital Signs Capillary Refill : (ADARSH AVITIA DO) Height, Weight, BMI Height: 5'4.00" Weight: 136lbs. oz. 61.961738is; BMI Method:Stated General Appearance: No Apparent Distress, Chronically ill Eyes: Bilateral Eye Normal Inspection HEENT: PERRL/EOMI Neck: Supple Respiratory: Lungs Clear, No Respiratory Distress Cardiovascular: Regular Rate, Rhythm Gastrointestinal: Non Tender, Soft Back: Normal Inspection Neurologic/Psychiatric: Alert, Oriented x3 Skin: Warm/Dry (ADARSH AVITIA DO) Progress/Results/Core Measures Suspected Sepsis SIRS Temperature: Pulse: Respiratory Rate: Laboratory Tests 12/18/18 16:45: White Blood Count 9.3 Blood Pressure / Mean: Laboratory Tests 12/18/18 16:45: Platelet Count 399 (ADARSH AVITIA DO) Results/Orders Lab Results Laboratory Tests Test 12/18/18 16:45 12/18/18 17:10 Range/Units White Blood Count 9.3 4.3-11.0 10^3/uL Red Blood Count 4.47 4.35-5.85 10^6/uL Hemoglobin 13.9 11.5-16.0 G/DL Hematocrit 40 35-52 % Mean Corpuscular Volume 89 80-99 FL Mean Corpuscular Hemoglobin 31 25-34 PG Mean Corpuscular Hemoglobin Concent 35 32-36 G/DL Red Cell Distribution Width 14.4 10.0-14.5 % Platelet Count 399 130-400 10^3/uL Mean Platelet Volume 9.8 7.4-10.4 FL Neutrophils (%) (Auto) 44 42-75 % Lymphocytes (%) (Auto) 15 12-44 % Monocytes (%) (Auto) 6 0-12 % Eosinophils (%) (Auto) 4 0-10 % Basophils (%) (Auto) 1 0-10 % Neutrophils # (Auto) 4.1 1.8-7.8 X 10^3 Lymphocytes # (Auto) 4.2 H 1.0-4.0 X 10^3 Monocytes # (Auto) 0.6 0.0-1.0 X 10^3 Eosinophils # (Auto) 0.4 H 0.0-0.3 10^3/uL Basophils # (Auto) 0.1 0.0-0.1 10^3/uL Sodium Level 139 135-145 MMOL/L Potassium Level 3.8 3.6-5.0 MMOL/L Chloride Level 103 98-107 MMOL/L Carbon Dioxide Level 24 21-32 MMOL/L Anion Gap 12 5-14 MMOL/L Blood Urea Nitrogen 8 7-18 MG/DL Creatinine 0.77 0.60-1.30 MG/DL Estimat Glomerular Filtration Rate > 60 BUN/Creatinine Ratio 10 Glucose Level 105 70-105 MG/DL Calcium Level 9.2 8.5-10.1 MG/DL Corrected Calcium 8.8 8.5-10.1 MG/DL Magnesium Level 2.2 1.6-2.4 MG/DL Total Bilirubin 0.2 0.1-1.0 MG/DL Aspartate Amino Transf (AST/SGOT) 15 5-34 U/L Alanine Aminotransferase (ALT/SGPT) 8 0-55 U/L Alkaline Phosphatase 82 40-136 U/L Total Protein 7.7 6.4-8.2 GM/DL Albumin 4.5 3.2-4.5 GM/DL Salicylates Level < 5.0 L 5.0-20.0 MG/DL Acetaminophen Level < 10 L 10-30 UG/ML Serum Alcohol < 10 <10 MG/DL Urine Color YELLOW Urine Clarity CLEAR Urine pH 6.0 5-9 Urine Specific [place] <1.005 1.016-1.022 Urine Protein NEGATIVE NEGATIVE Urine Glucose (UA) NEGATIVE NEGATIVE Urine Ketones NEGATIVE NEGATIVE Urine Nitrite NEGATIVE NEGATIVE Urine Bilirubin NEGATIVE NEGATIVE Urine Urobilinogen 0.2 NORMAL MG/DL Urine Leukocyte Esterase NEGATIVE NEGATIVE Urine RBC (Auto) 1+ H NEGATIVE Urine RBC 2-5 H /HPF Urine WBC NONE /HPF Urine Squamous Epithelial Cells 10-25 H /HPF Urine Crystals NONE /LPF Urine Bacteria TRACE /HPF Urine Casts NONE /LPF Urine Mucus NEGATIVE /LPF Urine Culture Indicated NO Urine Opiates Screen NEGATIVE NEGATIVE Urine Oxycodone Screen NEGATIVE NEGATIVE Urine Methadone Screen NEGATIVE NEGATIVE Urine Propoxyphene Screen NEGATIVE NEGATIVE Urine Barbiturates Screen NEGATIVE NEGATIVE Ur Tricyclic Antidepressants Screen NEGATIVE NEGATIVE Urine Phencyclidine Screen NEGATIVE NEGATIVE Urine Amphetamines Screen NEGATIVE NEGATIVE Urine Methamphetamines Screen NEGATIVE NEGATIVE Urine Benzodiazepines Screen POSITIVE H NEGATIVE Urine Cocaine Screen NEGATIVE NEGATIVE Urine Cannabinoids Screen NEGATIVE NEGATIVE (MIRIAM KEARNEY DO) Vital Signs/I&O 12/18/18 12/18/18 12/18/18 16:42 19:36 21:03 Temp 36.8 Pulse 97 68 Resp 16 18 16 B/P (MAP) 105/63 (77) 102/77 (85) 98/64 (75) Pulse Ox 99 99 96 O2 Delivery Room Air Room Air (MIRIAM KEARNEY DO) Vital Signs/I&O Capillary Refill : (ADARSH AVITIA DO) Progress Note : Progress Note I spoke to the poison center about this ingestion and they recommended usual tox screening EKG and observing her for at least 6 hours before she could be considered medically clear. I told patient the plan and she verbalized understanding. I will transfer care to Dr. Kearney at 1800, pending medical clearance. Patient's QTC was prolonged at 539 however comparing to old EKG on September 04 it appears that it was 591 in the past. Will continue to monitor. (ADARSH AVITIA DO) Progress Note : Progress Note @1800 - Pt care taken over from Dr. Avitia. @2100 - Pt medically cleared, awaiting mental health evaluation for disposition. @5 - The patient has been evaluated by mental health. She is going to sign a safety plan. The patient has not been drowsy since arrival and the likelihood of taking her actual ingestion is very low. The patient has a history of stating ingestions when she did not take them. The patient's is present in the emergency department and is comfortable taking the patient home at this time. Advised patient to return immediately for new or worsening symptoms of if she is having thoughts of self-harm. The pt is now denying thoughts of self- harm/homicidal thoughts. (MIRIAM KEARNEY DO) Departure Impression Primary Impression: Drug overdose, intentional Additional Impression: Non-suicidal depressed mood Disposition: 01 HOME, SELF-CARE (with and suicide safety plan) Condition: Stable Departure-Patient Inst. Decision time for Depature: 21:58 (MIRIAM KEARNEY DO) Referrals: PAT FAULKNER MD (PCP/Family) Primary Care Physician Patient Instructions: Depression, Adult (DC), OUTPT MENTAL HEALTH SERVICES Add. Discharge Instructions: Follow your suicide safety plan. Return to the emergency Department immediately if you're having thoughts of self-harm. Follow-up with your doctor in the next 1-2 days. ADARSH AVITIA DO Dec 18, 2018 16:47 MIRIAM PHILLIPS DO Dec 18, 2018 21:06 POS
[2018-12-18 16:56] LABS: HEMATOCRIT 40 % (35-52); HEMOGLOBIN 13.9 G/DL (11.5-16.0); MEAN CORPUSCULAR HEMOGLOBIN 31 PG (25-34); MEAN CORPUSCULAR HGB CONC 35 G/DL (32-36); MEAN CORPUSCULAR VOLUME 89 FL (80-99); PLATELET COUNT 399 10^3/uL (130-400); RED CELL DISTRIBUTION WIDTH 14.4 % (10.0-14.5); WHITE BLOOD COUNT 9.3 10^3/uL (4.3-11.0)
[2018-12-18 16:57] LABS: BASOPHILS # (AUTO) 0.1 10^3/uL (0.0-0.1); BASOPHILS % (AUTO) 1 % (0-10); EOSINOPHILS # (AUTO) 0.4 10^3/uL (0.0-0.3); EOSINOPHILS % (AUTO) 4 % (0-10); LYMPHOCYTES # (AUTO) 4.2 X 10^3 (1.0-4.0); LYMPHOCYTES % (AUTO) 15 % (12-44); MEAN PLATELET VOLUME 9.8 FL (7.4-10.4); MONOCYTES # (AUTO) 0.6 X 10^3 (0.0-1.0); MONOCYTES % (AUTO) 6 % (0-12); NEUTROPHILS # (AUTO) 4.1 X 10^3 (1.8-7.8); NEUTROPHILS % (AUTO) 44 % (42-75)
[2018-12-18 17:17] LABS: BUN/CREATININE RATIO 10; CARBON DIOXIDE 24 MMOL/L (21-32); CHLORIDE 103 MMOL/L (98-107); CREATININE SERUM 0.77 MG/DL (0.60-1.30); GFR ESTIMATED > 60; POTASSIUM 3.8 MMOL/L (3.6-5.0); SODIUM 139 MMOL/L (135-145)
[2018-12-18 17:18] LABS: ACETAMINOPHEN < 10 UG/ML (10-30); ALANINE AMINOTRANSFERASE 8 U/L (0-55); ALBUMIN 4.5 GM/DL (3.2-4.5); ALKALINE PHOSPHATASE 82 U/L (40-136); BILIRUBIN,TOTAL 0.2 MG/DL (0.1-1.0); CALCIUM 9.2 MG/DL (8.5-10.1); GLUCOSE 105 MG/DL (70-105); SALICYLATE < 5.0 MG/DL (5.0-20.0); TOTAL PROTEIN 7.7 GM/DL (6.4-8.2)
[2018-12-18 17:21] LABS: BACTERIA,URINE TRACE /HPF; BILIRUBIN,URINE NEGATIVE (NEGATIVE); CLARITY,URINE CLEAR; COLOR,URINE YELLOW; GLUCOSE, URINE (UA) NEGATIVE (NEGATIVE); KETONES,URINE NEGATIVE (NEGATIVE); LEUKOCYTE ESTERASE ,URINE NEGATIVE (NEGATIVE); NITRITE,URINE NEGATIVE (NEGATIVE); PROTEIN,URINE NEGATIVE (NEGATIVE)
--- NOTE | 2018-12-18 17:27 | NUR ---
Pt stated she did this, because she hasn't been able to drive for about 5 months due to her car being broke. She has been stuck at home alone and hasn't been able to leave. She stated that with the weather being bad, she won't be able to leave now. Pt stated stated she is angry and has been depressed for awhile, but has been taking her medications.
[2018-12-18 17:28] LABS: AMPHETAMINE SCREEN, URINE NEGATIVE (NEGATIVE); BARBITURATE SCREEN URINE NEGATIVE (NEGATIVE); BENZODIAZEPINES SCREEN URINE POSITIVE (NEGATIVE); CANNABINOID SCREEN, URINE NEGATIVE (NEGATIVE); COCAINE SCREEN URINE NEGATIVE (NEGATIVE); METHADONE STAT NEGATIVE (NEGATIVE); METHAMPHETAMINE SCREEN URINE S NEGATIVE (NEGATIVE); OPIATE SCREEN URINE NEGATIVE (NEGATIVE); OXYCODONE STAT NEGATIVE (NEGATIVE); PROPOXYPHENE STAT NEGATIVE (NEGATIVE); TRICYCLIC ANTIDEPRESSANTS SCRE NEGATIVE (NEGATIVE)
[2018-12-18 19:36] VITALS: BP 102/77
[2018-12-18 21:03] VITALS: BP 98/64
--- NOTE | 2018-12-18 21:30 | NUR ---
[facility] STARTED SCREEN VIA LAPTOP AT THIS TIME
--- NOTE | 2018-12-18 21:50 | NUR ---
[facility] CALLED AND IS GOING TO DO A SAFETY PLAN WITH THE PT.
[2018-12-18 22:29] VITALS: BP 107/65
== END 2018-12-18 22:30 | disposition home or self-care (01) ==
LOC: EDUNIT# 15:59 → ER FS 16:00
DX: T42.6X2A Poisoning by other antiepileptic and sedative-hypnotic drugs, intentional self-harm, initial encounter (principal); T42.4X2A Poisoning by benzodiazepines, intentional self-harm, initial encounter; F41.9 Anxiety disorder, unspecified; F32.9 Major depressive disorder, single episode, unspecified; Z77.22 Contact with and (suspected) exposure to environmental tobacco smoke (acute) (chronic); Z90.49 Acquired absence of other specified parts of digestive tract; Z90.710 Acquired absence of both cervix and uterus
CPT/HCPCS: 36415; 80053; 80306; 80320; 80329; 81000; 83735; 85025; 93005; 96360

== ENCOUNTER 2019-07-30 17:30 | Emergency (ER) | payer SELFPAY ==
[~2019-07-30] VITALS: Ht 162.6 cm; Wt 61.4 kg
[~2019-07-30 17:30] MED LIST changes: -TRAM50TA2 PO; +TRM50T PO
[2019-07-30 18:21] LABS: BASOPHILS # (AUTO) 0.1 10^3/uL (0.0-0.1); BASOPHILS % (AUTO) 1 % (0-10); EOSINOPHILS # (AUTO) 0.2 10^3/uL (0.0-0.3); EOSINOPHILS % (AUTO) 2 % (0-10); HEMATOCRIT 40 % (35-52); HEMOGLOBIN 14.2 G/DL (11.5-16.0); LYMPHOCYTES # (AUTO) 4.3 X 10^3 (1.0-4.0); LYMPHOCYTES % (AUTO) 40 % (12-44); MEAN CORPUSCULAR HEMOGLOBIN 31 PG (25-34); MEAN CORPUSCULAR HGB CONC 36 G/DL (32-36); MEAN CORPUSCULAR VOLUME 87 FL (80-99); MEAN PLATELET VOLUME 10.8 FL (7.4-10.4); MONOCYTES # (AUTO) 0.6 X 10^3 (0.0-1.0); MONOCYTES % (AUTO) 6 % (0-12); NEUTROPHILS # (AUTO) 5.4 X 10^3 (1.8-7.8); NEUTROPHILS % (AUTO) 51 % (42-75); PLATELET COUNT 265 10^3/uL (130-400); RED CELL DISTRIBUTION WIDTH 13.7 % (10.0-14.5); WHITE BLOOD COUNT 10.6 10^3/uL (4.3-11.0)
[2019-07-30 18:33] LABS: ALKALINE PHOSPHATASE 87 U/L (40-136); BILIRUBIN,TOTAL 0.3 MG/DL (0.1-1.0); BUN/CREATININE RATIO 12; CALCIUM 8.4 MG/DL (8.5-10.1); CARBON DIOXIDE 24 MMOL/L (21-32); CHLORIDE 104 MMOL/L (98-107); CREATININE SERUM 0.75 MG/DL (0.60-1.30); GFR ESTIMATED > 60; GLUCOSE 92 MG/DL (70-105); POTASSIUM 3.4 MMOL/L (3.6-5.0); SODIUM 142 MMOL/L (135-145)
--- NOTE | 2019-07-30 18:33 | ED Psychosocial ---
General Chief Complaint: Psych/Social Disorder Stated Complaint: SUICIDAL THOUGHTS,ANXIETY,MOOD SWINGS Nursing Triage Note: Patient states she has been having thoughts about hurting and/or killing herself for the last 3 days, denies any specific plan to harm or kill herself. She denies any recent events that may have triggered these thoughts, states she struggles with depression and anxiety and has a history of suicial ideation, but has never had a suicide attempt. Source: patient History of Present Illness Date Seen by Provider: Jul 30, 2019 Time Seen by Provider: 18:01 Initial Comments 44-year-old female presenting with complaints of mood swings and suicidal ideation. She states that she is trying to overdose multiple times in the past. She did not take any meds for an overdose tonight but continued to have suicidal thoughts in the last few days. She didn't feel safe at home and had her bring her to the emergency department. She states that she's had significant mood swings recently and was concerned about that as well. She is not currently taking any medications for depression or anxiety. She states that she has been admitted to psychiatric hospital previously but it has been 2 or 3 years. She denied any attempted self-harm tonight. She also denied any recent events to trigger her suicidal thoughts. She states that she is not currently seeing a therapist or counselor either as it has been several months for that as well. Allergies and Home Medications Allergies Coded Allergies: No Known Drug Allergies (Unverified , 07/17/18) Home Medications Famotidine 20 Mg Tablet, 20 MG PO BID Prescribed by: PATRICIA LAMB on 07/17/181819 Hydrocodone Bit/Acetaminophen 1 Tab Tab, 1 EACH PO Q4-6HR PRN for PAIN-MODERATE Prescribed by: ADARSH AVITIA on 08/20/181936 Hydrocodone Bit/Acetaminophen 1 Tab Tab, 1 EACH PO Q4-6HR PRN for PAIN-MODERATE Prescribed by: ZOLTAN MANN on 08/28/18 235 Ondansetron 4 Mg Tab.rapdis, 4 MG PO Q6H PRN for NAUSEA/VOMITING Prescribed by: PATRICIA LAMB on 07/17/181820 Ondansetron 4 Mg Tab.rapdis, 4 MG PO Q6H PRN for NAUSEA/VOMITING-1ST LINE Prescribed by: ADARSH AVITIA on 08/20/181936 Pantoprazole Sodium 40 Mg Tablet.dr, 40 MG PO BID Prescribed by: ADARSH AVITIA on 08/20/181936 Tramadol HCl 50 Mg Tablet, 50-100 MG PO Q6H PRN for PAIN-MILD TO MODERATE Prescribed by: PATRICIA LAMB on 07/17/181821 Patient Home Medication List Home Medication List Reviewed: Yes Review of Systems Constitutional: No chills, No fever EENTM: no symptoms reported Respiratory: no symptoms reported Cardiovascular: no symptoms reported Gastrointestinal: no symptoms reported Genitourinary: no symptoms reported Control/STD Prophylaxis: Other (partial hysterectomy) Musculoskeletal: no symptoms reported Skin: no symptoms reported Psychiatric/Neurological: Anxiety, Depressed, Emotional Problems (significant mood swings recently); Denies Headache Past Hokraah-Oljuai-Drfghw Hx Past Med/Social Hx: Reviewed Nursing Past Med/Soc Hx Patient Social History Alcohol Use: Rarely Uses Number of Drinks Today: CC Alcohol Beverage of Choice: Cheap Liquor Recreational Drug Use: Yes (Last use 07/29/19) Drug of Choice: marijuana Smoking Status: Current Everyday Smoker Type Used: Cigarettes 2nd Hand Smoke Exposure: Yes Recent Foreign Travel: No Contact w/Someone Who Travel: No Recent Infectious Disease Expo: No Recent Hopitalizations: No Physical Abuse: No Sexual Abuse: No Mistreated: No Fear: No Seasonal Allergies Seasonal Allergies: No Past Medical History Surgeries: Yes Appendectomy, Hysterectomy Respiratory: No Cardiac: No Neurological: No Genitourinary: No Gastrointestinal: No Musculoskeletal: No Endocrine: No HEENT: No Cancer: No Psychosocial: Yes Anxiety, Depression Integumentary: No Blood Disorders: No Physical Exam Vital Signs - First Documented 07/30/19 17:33 Temp 37.0 Pulse 93 Resp 20 B/P (MAP) 129/71 (90) Pulse Ox 97 O2 Delivery Room Air Capillary Refill : Less Than 3 Seconds Height, Weight, BMI Height: 5'4.00" Weight: 136lbs. oz. 61.324328uj; 23.00 BMI Method:Stated General Appearance: WD/WN, no apparent distress HEENT: PERRL/EOMI, normal ENT inspection, pharynx normal Neck: non-tender, full range of motion, supple, normal inspection Respiratory: chest non-tender, lungs clear, normal breath sounds, no respiratory distress, no accessory muscle use Cardiovascular: normal peripheral pulses, regular rate, rhythm Gastrointestinal: normal bowel sounds, non tender, soft, no pulsatile mass Extremities: normal range of motion, non-tender, normal inspection, no calf tenderness, normal capillary refill Neurologic/Psychiatric: parboiler II-XII nml as tested, no motor/sensory deficits, a lert, oriented x 3, depressed affect, other (expresses suicidal ideation and plan for overdose if she was going to hurt herself) Appearance/Memory: appropriate appearance Behavior/Eye Contact: cooperative, normal speech, avoids eye contact Thoughts/Hallucinations: no apparent hallucination Skin: normal color, warm/dry Progress/Results/Core Measures Results/Orders Lab Results Laboratory Tests Test 07/30/19 18:05 07/30/19 19:06 Range/Units White Blood Count 10.6 4.3-11.0 10^3/uL Red Blood Count 4.55 4.35-5.85 10^6/uL Hemoglobin 14.2 11.5-16.0 G/DL Hematocrit 40 35-52 % Mean Corpuscular Volume 87 80-99 FL Mean Corpuscular Hemoglobin 31 25-34 PG Mean Corpuscular Hemoglobin Concent 36 32-36 G/DL Red Cell Distribution Width 13.7 10.0-14.5 % Platelet Count 265 130-400 10^3/uL Mean Platelet Volume 10.8 H 7.4-10.4 FL Neutrophils (%) (Auto) 51 42-75 % Lymphocytes (%) (Auto) 40 12-44 % Monocytes (%) (Auto) 6 0-12 % Eosinophils (%) (Auto) 2 0-10 % Basophils (%) (Auto) 1 0-10 % Neutrophils # (Auto) 5.4 1.8-7.8 X 10^3 Lymphocytes # (Auto) 4.3 H 1.0-4.0 X 10^3 Monocytes # (Auto) 0.6 0.0-1.0 X 10^3 Eosinophils # (Auto) 0.2 0.0-0.3 10^3/uL Basophils # (Auto) 0.1 0.0-0.1 10^3/uL Neutrophils % (Manual) 52 % Lymphocytes % (Manual) 21 % Monocytes % (Manual) 6 % Eosinophils % (Manual) 2 % Basophils % (Manual) 1 % Band Neutrophils 2 % Atypical Lymphocytes 16 % Blood Morphology Comment NORMAL Sodium Level 142 135-145 MMOL/L Potassium Level 3.4 L 3.6-5.0 MMOL/L Chloride Level 104 98-107 MMOL/L Carbon Dioxide Level 24 21-32 MMOL/L Anion Gap 14 5-14 MMOL/L Blood Urea Nitrogen 9 7-18 MG/DL Creatinine 0.75 0.60-1.30 MG/DL Estimat Glomerular Filtration Rate > 60 BUN/Creatinine Ratio 12 Glucose Level 92 70-105 MG/DL Calcium Level 8.4 L 8.5-10.1 MG/DL Corrected Calcium 8.1 L 8.5-10.1 MG/DL Total Bilirubin 0.3 0.1-1.0 MG/DL Aspartate Amino Transf (AST/SGOT) 14 5-34 U/L Alanine Aminotransferase (ALT/SGPT) 6 0-55 U/L Alkaline Phosphatase 87 40-136 U/L Total Protein 7.4 6.4-8.2 GM/DL Albumin 4.4 3.2-4.5 GM/DL Salicylates Level < 0.3 L 5.0-20.0 MG/DL Acetaminophen Level < 10 L 10-30 UG/ML Serum Alcohol < 10 <10 MG/DL Urine Color DARK YELLOW Urine Clarity SL CLOUDY Urine pH 6.0 5-9 Urine Specific [place] >=1.030 1.016-1.022 Urine Protein NEGATIVE NEGATIVE Urine Glucose (UA) NEGATIVE NEGATIVE Urine Ketones NEGATIVE NEGATIVE Urine Nitrite NEGATIVE NEGATIVE Urine Bilirubin NEGATIVE NEGATIVE Urine Urobilinogen 0.2 < = 1.0 MG/DL Urine Leukocyte Esterase NEGATIVE NEGATIVE Urine RBC (Auto) 1+ H NEGATIVE Urine RBC 10-25 H /HPF Urine WBC 0-2 /HPF Urine Squamous Epithelial Cells 25-50 H /HPF Urine Crystals NONE /LPF Urine Bacteria TRACE /HPF Urine Casts NONE /LPF Urine Mucus LARGE H /LPF Urine Culture Indicated NO Urine Test NEGATIVE NEGATIVE Urine Opiates Screen NEGATIVE NEGATIVE Urine Oxycodone Screen NEGATIVE NEGATIVE Urine Methadone Screen NEGATIVE NEGATIVE Urine Propoxyphene Screen NEGATIVE NEGATIVE Urine Barbiturates Screen NEGATIVE NEGATIVE Ur Tricyclic Antidepressants Screen NEGATIVE NEGATIVE Urine Phencyclidine Screen NEGATIVE NEGATIVE Urine Amphetamines Screen NEGATIVE NEGATIVE Urine Methamphetamines Screen NEGATIVE NEGATIVE Urine Benzodiazepines Screen NEGATIVE NEGATIVE Urine Cocaine Screen NEGATIVE NEGATIVE Urine Cannabinoids Screen NEGATIVE NEGATIVE My Orders Orders - NUVIA COSBY MD Ua Culture If Indicated (07/30/19 17:42) Cbc With Automated Diff (07/30/19 17:42) Comprehensive Metabolic Panel (07/30/19 17:42) Alcohol (07/30/19 17:42) Drug Screen Stat (Urine) (07/30/19 17:42) Acetaminophen (07/30/19 17:42) Salicylate (07/30/19 17:42) Ekg Tracing (07/30/19 17:42) Hcg,Qualitative Urine (07/30/19 17:42) Bh Status Checks/Observation Q15M (07/30/19 17:42) Manual Differential (07/30/19 18:05) Vital Signs/I&O 07/30/19 17:33 Temp 37.0 Pulse 93 Resp 20 B/P (MAP) 129/71 (90) Pulse Ox 97 O2 Delivery Room Air Blood Pressure Mean: 90 Progress Progress Note #1: Progress Note Send blood work as well as obtain urinalysis and EKG. She states that she did not feel like she could urinate. So she was given water to drink. Progress Note #2: Time: 19:26 Progress Note Labs are all stable without acute significant abnormality. She has no drugs of abuse or signs of overdose based on her tests. Will contact mental health for screening. She is medically stable for psychiatric evaluation and disposition. Progress Note #3: Time: 21:11 Progress Note Staff from mental health screening spoke with the patient and they came to a safety plan for her. Will fax that over and then discharge to home to follow up as directed in their safety plan. Initial ECG Impression Date: Jul 30, 2019 Initial ECG Impression Time: 18:27 Initial ECG Rate: 85 Initial ECG Rhythm: Normal Sinus Initial ECG Comparisson: No Previous ECG Available Comment Normal sinus rhythm with heart rate of 85 bpm. ID interval 154 ms. There is no acute ST elevation she does have global T-wave flattening. QT interval 451 ms and QTc interval 537 ms. There is some artifact from motion on the tracing as well. There is no prior tracing immediately available for comparison. Departure Impression Primary Impression: Depression with suicidal ideation Additional Impression: Mood swings Disposition: 01 HOME, SELF-CARE Condition: Stable Departure-Patient Inst. Decision time for Depature: 21:12 Referrals: SELF,PAT PLUMMER (PCP/Family) Primary Care Physician Patient Instructions: Depression, Adult (DC), Suicide Prevention Add. Discharge Instructions: Follow the safety plan as worked out with mental health screener. All discharge instructions reviewed with patient and/or family. Voiced understanding. NUVIA COSBY MD Jul 30, 2019 18:33
[2019-07-30 18:34] LABS: ACETAMINOPHEN < 10 UG/ML (10-30); ALANINE AMINOTRANSFERASE 6 U/L (0-55); ALBUMIN 4.4 GM/DL (3.2-4.5); SALICYLATE < 0.3 MG/DL (5.0-20.0); TOTAL PROTEIN 7.4 GM/DL (6.4-8.2)
[2019-07-30 18:40] LABS: ATYPICAL LYMPHOCYTES 16 %; BAND NEUTROPHILS 2 %; BASOPHILS % (MANUAL) 1 %; EOSINOPHILS % (MANUAL) 2 %; LYMPHOCYTES % (MANUAL) 21 %; MONOCYTES % (MANUAL) 6 %; NEUTROPHILS % (MANUAL) 52 %; RBC MORPH NORMAL
[2019-07-30 19:25] LABS: COLOR,URINE DARK YELLOW
[2019-07-30 19:26] LABS: BACTERIA,URINE TRACE /HPF; BILIRUBIN,URINE NEGATIVE (NEGATIVE); CLARITY,URINE SL CLOUDY; GLUCOSE, URINE (UA) NEGATIVE (NEGATIVE); KETONES,URINE NEGATIVE (NEGATIVE); LEUKOCYTE ESTERASE ,URINE NEGATIVE (NEGATIVE); NITRITE,URINE NEGATIVE (NEGATIVE); PROTEIN,URINE NEGATIVE (NEGATIVE); SQUAMOUS EPITHELIAL CELL,UR 25-50 /HPF; WBC,URINE 0-2 /HPF
[2019-07-30 19:28] LABS: AMPHETAMINE SCREEN, URINE NEGATIVE (NEGATIVE); BARBITURATE SCREEN URINE NEGATIVE (NEGATIVE); BENZODIAZEPINES SCREEN URINE NEGATIVE (NEGATIVE); CANNABINOID SCREEN, URINE NEGATIVE (NEGATIVE); COCAINE SCREEN URINE NEGATIVE (NEGATIVE); HCG,QUALITATIVE URINE NEGATIVE (NEGATIVE); METHADONE STAT NEGATIVE (NEGATIVE); METHAMPHETAMINE SCREEN URINE S NEGATIVE (NEGATIVE); OPIATE SCREEN URINE NEGATIVE (NEGATIVE); OXYCODONE STAT NEGATIVE (NEGATIVE); PROPOXYPHENE STAT NEGATIVE (NEGATIVE); TRICYCLIC ANTIDEPRESSANTS SCRE NEGATIVE (NEGATIVE)
--- NOTE | 2019-07-30 19:47 | NUR ---
[facility] and probably send her home as she has been screened multiple times before.
--- OUTSIDE RECORDS SUMMARY | 2019-07-30 20:43 | XMS REPORT | Continuity of Care Document ---
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 Automated blood lymphocytes/100 leukocytes 15 % 12-44 Blood monocytes/100 leukocytes 6 % 0-12 Automated blood eosinophils/100 leukocytes 4 % 0-10 Automated blood basophils/100 leukocytes 1 % 0-10 Blood neutrophils automated count (number/volume) 4.1 10*3 1.8-7.8 Blood lymphocytes automated count (number/volume) 4.2 10*3 1.0-4.0 Blood monocytes automated count (number/volume) 0. 6 10*3 0.0-1.0 Automated eosinophil count 0.4 10*3/uL 0 .0-0.3 Automated blood basophil count (count/volume) 0.1 10*3/uL 0.0-0.1 Comprehensive metabolic panel - 12/18/18 16:45 Serum or plasma sodium measurement (moles/volume) 139 mmol/L 135-145 Serum or plasma potassium measurement (moles/volume) 3.8 mmol/L 3.6-5.0 Serum or plasma chloride measurement (moles/volume) 103 mmol/L 98-107 Carbon dioxide 24 mmol/L 21-32 Serum or plasma anion gap determination (moles/volume) 12 mmol/L 5-14 Serum or plasma urea nitrogen measurement (mass/volume ) 8 mg/dL 7-18 Serum or plasma creatinine measurement (mass/volume) 0.77 mg/dL 0.60-1.30 Serum or plasma urea nitrogen/creatinine mass ratio 10 NRG Serum or plasma creatinine measurement w ith calculation of estimated glomerular filtration rate > NRG Serum or plasma glucose measurement (mass/volume) 105 mg/dL 70-105 Serum or plasma calcium measurement (mass/volume) 9.2 mg/dL 8.5-10.1 Serum or plasma total bilirubin measurement (mass/volu me) 0.2 mg/dL 0.1-1.0 Serum or plasma alkaline phosphatase rosemary surement (enzymatic activity/volume) 82 U/L 40-136 Serum or plasma aspartate aminotransfera se measurement (enzymatic activity/volume) 15 U/L 5-34 Serum or plasma alanine aminotransferase measurement (enzymatic activity/volume) 8 U/L 0-55 Serum or plasma protein measurement (mass/volume) 7.7 g/dL 6.4-8.2 Serum or plasma albumin measurement (mass/volume) 4.5 g/dL 3.2-4.5 CALCIUM CORRECTED 8.8 mg/dL 8.5-10.1 Serum or plasma salicylates measurement (mass/volume) - 12/18/18 16:45 Serum or plasma salicylates measurement (mass/volume) < mg/dL 5.0-20.0 Serum or plasma acetaminophen measuremen t (mass/volume) - 12/18/18 16:45 Serum or plasma acetaminophen measurement (mass/volume ) < ug/mL 10-30 Serum or plasma ethanol measurement (mas s/volume) - 12/18/18 16:45 Serum or plasma ethanol measurement (mass/volume) < mg/dL <10 Magnesium - 12/18/18 16:45 Magnesium 2.2 mg/dL 1.6-2.4 Complete urinalysis with reflex to cultu re - 12/18/18 17:10 Urine color determination YELLOW NRG Urine clarity determination CLEAR NR G Urine pH measurement by test strip 6.0 5-9 Specific gravity of urine by test strip < 1.016-1.022 Urine protein assay by test strip, semi-quantitative NEGATIVE NEGATIVE Urine glucose detection by automated test strip NE GATIVE NEGATIVE Erythrocytes detection in urine sediment by light micr oscopy 1+ NEGATIVE Urine ketones detection by automated test strip NE GATIVE NEGATIVE Urine nitrite detection by test strip NEGATIVE NEGATIVE Urine total bilirubin detection by test strip NEGA TIVE NEGATIVE Urine urobilinogen measurement by automated test strip (mass/volume) 0.2 mg/dL NORMAL Urine leukocyte esterase detection by dipstick NEG ATIVE NEGATIVE Automated urine sediment erythrocyte cou nt by microscopy (number/high power field) [HPF] NRG Automated urine sediment leukocyte count by microscopy (number/high power field) NONE NRG Bacteria detection in urine sediment by light microsco py TRACE NRG Squamous epithelial cells detection in u rine sediment by light microscopy 10-25 NRG Crystals detection in urine sediment by light microsco py NONE NRG Casts detection in urine sediment by light microscopy NONE NRG Mucus detection in urine sediment by light microscopy NEGATIVE NRG Complete urinalysis with reflex to culture NO NRG Urine drug screening test - 12/18/18 17: 10 Urine phencyclidine detection by screening method NEGATIVE NEGATIVE Urine benzodiazepines detection by screening method POSITIVE NEGATIVE Urine cocaine detection NEGATIVE NEGATI VE Urine amphetamines detection by screening method N EGATIVE NEGATIVE Urine methamphetamine detection by screening method NEGATIVE NEGATIVE Urine cannabinoids detection by screening method N EGATIVE NEGATIVE Urine opiates detection by screening method NEGATI VE NEGATIVE Urine barbiturates detection NEGATIVE N EGATIVE Screening urine tricyclic antidepressants detection NEGATIVE NEGATIVE Urine methadone detection by screening method NEGA TIVE NEGATIVE Urine oxycodone detection NEGATIVE NEGA TIVE Urine propoxyphene detection NEGATIVE N EGATIVE Comprehensive metabolic panel - 07/30/19 18:05 Serum or plasma sodium measurement (moles/volume) 142 mmol/L 135-145 Serum or plasma potassium measurement (moles/volume) 3.4 mmol/L 3.6-5.0 Serum or plasma chloride measurement (moles/volume) 104 mmol/L 98-107 Carbon dioxide 24 mmol/L 21-32 Serum or plasma anion gap determination (moles/volume) 14 mmol/L 5-14 Serum or plasma urea nitrogen measurement (mass/volume ) 9 mg/dL 7-18 Serum or plasma creatinine measurement (mass/volume) 0.75 mg/dL 0.60-1.30 Serum or plasma urea nitrogen/creatinine mass ratio 12 NRG Serum or plasma creatinine measurement w ith calculation of estimated glomerular filtration rate > NRG Serum or plasma glucose measurement (mass/volume) 92 mg/dL 70-105 Serum or plasma calcium measurement (mass/volume) 8.4 mg/dL 8.5-10.1 Serum or plasma total bilirubin measurement (mass/volu me) 0.3 mg/dL 0.1-1.0 Serum or plasma alkaline phosphatase rosemary surement (enzymatic activity/volume) 87 U/L 40-136 Serum or plasma aspartate aminotransfera se measurement (enzymatic activity/volume) 14 U/L 5-34 Serum or plasma alanine aminotransferase measurement (enzymatic activity/volume) 6 U/L 0-55 Serum or plasma protein measurement (mass/volume) 7.4 g/dL 6.4-8.2 Serum or plasma albumin measurement (mass/volume) 4.4 g/dL 3.2-4.5 CALCIUM CORRECTED 8.1 mg/dL 8.5-10.1 Serum or plasma salicylates measurement (mass/volume) - 07/30/19 18:05 Serum or plasma salicylates measurement (mass/volume) < mg/dL 5.0-20.0 Serum or plasma acetaminophen measuremen t (mass/volume) - 07/30/19 18:05 Serum or plasma acetaminophen measurement (mass/volume ) < ug/mL 10-30 Serum or plasma ethanol measurement (mas s/volume) - 07/30/19 18:05 Serum or plasma ethanol measurement (mass/volume) < mg/dL <10 Complete blood count (CBC) with automate d white blood cell (WBC) differential - 07/30/19 18:05 Blood leukocytes automated count (number/volume) 10.6 10*3/uL 4.3-11.0 Blood erythrocytes automated count (number/volume) 4.55 10*6/uL 4.35-5.85 Venous blood hemoglobin measurement (mass/volume) 14.2 g/dL 11.5-16.0 Blood hematocrit (volume fraction) 40 % 35-52 Automated erythrocyte mean corpuscular volume 87 [ foz_us] 80-99 Automated erythrocyte mean corpuscular h emoglobin (mass per erythrocyte) 31 pg 25-34 Automated erythrocyte mean corpuscular h emoglobin concentration measurement (mass/volume) 36 g/dL 32-36 Automated erythrocyte distribution width ratio 13. 7 % 10.0- 14.5 Automated blood platelet count (count/volume) 265 10*3/uL 130-400 Automated blood platelet mean volume measurement 10.8 [foz_us] 7.4-10.4 Automated blood neutrophils/100 leukocytes 51 % 42-75 Automated blood lymphocytes/100 leukocytes 40 % 12-44 Blood monocytes/100 leukocytes 6 % 0-12 Automated blood eosinophils/100 leukocytes 2 % 0-10 Automated blood basophils/100 leukocytes 1 % 0-10 Blood neutrophils automated count (number/volume) 5.4 10*3 1.8-7.8 Blood lymphocytes automated count (number/volume) 4.3 10*3 1.0-4.0 Blood monocytes automated count (number/volume) 0. 6 10*3 0.0-1.0 Automated eosinophil count 0.2 10*3/uL 0 .0-0.3 Automated blood basophil count (count/volume) 0.1 10*3/uL 0.0-0.1 Manual absolute plasma cell count - 11/09 18:05 Blood monocytes/100 leukocytes 6 % NRG Manual blood segmented neutrophils/100 leukocytes 52 % NRG Blood band neutrophils/100 leukocytes 2 % NRG Manual blood lymphocytes/100 leukocytes 21 % NRG Manual eosinophils/100 leukocytes in nose 2 % NRG Manual blood basophils/100 leukocytes 1 % NRG Manual blood lymphocytes variant/100 leukocytes 16 % NRG Blood erythrocyte morphology finding identification NORMAL NRG Complete urinalysis with reflex to cultu re - 07/30/19 19:06 Urine color determination DARK YELLOW N RG Urine clarity determination SL CLOUDY N RG Urine pH measurement by test strip 6.0 5-9 Specific gravity of urine by test strip >= 1.016-1.022 Urine protein assay by test strip, semi-quantitative NEGATIVE NEGATIVE Urine glucose detection by automated test strip NE GATIVE NEGATIVE Erythrocytes detection in urine sediment by light micr oscopy 1+ NEGATIVE Urine ketones detection by automated test strip NE GATIVE NEGATIVE Urine nitrite detection by test strip NEGATIVE NEGATIVE Urine total bilirubin detection by test strip NEGA TIVE NEGATIVE Urine urobilinogen measurement by automated test strip (mass/volume) 0.2 mg/dL < = 1.0 Urine leukocyte esterase detection by dipstick NEG ATIVE NEGATIVE Automated urine sediment erythrocyte cou nt by microscopy (number/high power field) [HPF] NRG Automated urine sediment leukocyte count by microscopy (number/high power field) [HPF] NRG Bacteria detection in urine sediment by light microsco py TRACE NRG Squamous epithelial cells detection in u rine sediment by light microscopy 25-50 NRG Crystals detection in urine sediment by light microsco py NONE NRG Casts detection in urine sediment by light microscopy NONE NRG Mucus detection in urine sediment by light microscopy LARGE NRG Complete urinalysis with reflex to culture NO NRG Urine beta human chorionic gonadotropin (hCG) measurement - 07/30/19 19:06 Urine beta human chorionic gonadotropin (hCG) measurem ent NEGATIVE NEGATIVE Urine drug screening test - 07/30/19 19: 06 Urine phencyclidine detection by screening method NEGATIVE NEGATIVE Urine benzodiazepines detection by screening method NEGATIVE NEGATIVE Urine cocaine detection NEGATIVE NEGATI VE Urine amphetamines detection by screening method N EGATIVE NEGATIVE Urine methamphetamine detection by screening method NEGATIVE NEGATIVE Urine cannabinoids detection by screening method N EGATIVE NEGATIVE Urine opiates detection by screening method NEGATI VE NEGATIVE Urine barbiturates detection NEGATIVE N EGATIVE Screening urine tricyclic antidepressants detection NEGATIVE NEGATIVE Urine methadone detection by screening method NEGA TIVE NEGATIVE Urine oxycodone detection NEGATIVE NEGA TIVE Urine propoxyphene detection NEGATIVE N EGATIVE Encounters ACCT No. Visit Date/Time Discharge Status Pt. Type Provider Facility Loc./Unit Complaint [id number] 02/01/2019 15:00:00 02/01/2019 23:59:[address] [facility] Outpatient SELF, PAT Iglesias [facility] [id number] 09/24/2018 14:15:00 Document Registration [id number] 08/31/2017 10:42:00 8 10:53:00 DIS Inpatient JUSTIN LEACH [facility] VN [id number] 05/27/2016 04:37:00 7 16:53:00 DIS Inpatient BETHANIE INIGUEZ [facility] VN [id number] 05/27/2016 06:27:52 Document Registration [id number] 12/18/2018 16:00:00 22:30:00 DIS Outpatient CAIO PINEDA DO [facility] FS OD [id number] 09/04/2018 20:21:00 01:45:00 DIS Outpatient NUVIA COSBY MD [facility] FS POSS OVERDOSE [id number] 08/28/2018 21:48:00 00:00:00 DIS Outpatient JOHNATHAN PLUMMER, ZOLTAN Fischer [facility] FS ABD PAIN [id number] 08/20/2018 17:58:00 19:50:00 DIS Outpatient ADARSH AVITIA DO [facility] FS ABD PAIN, VOMITING [id number] 07/17/2018 15:13:00 18:52:00 DIS Emergency PATRICIA LAMB DO [facility] FS CHEST PAIN,WEAK, FAINTE D EARLIER TODAY [id number] 07/30/2019 17:32:[address] Emergency NUVIA COSBY MD [facility] ER FS SUICIDAL THOUGHTS,ANXIETY,MO OD SWINGS
--- NOTE | 2019-07-30 20:48 | NUR ---
pt. talking with [facility] at this time.
[2019-07-30 21:11] VITALS: BP 130/74
--- NOTE | 2019-07-30 21:13 | NUR ---
pt. will do the safety plan and be discharged and go to her appointment tomorrow as per [facility]
== END 2019-07-30 21:14 | disposition home or self-care (01) ==
LOC: EDUNIT# 17:30 → ER FS 17:32
DX: R45.851 Suicidal ideations (principal); F32.9 Major depressive disorder, single episode, unspecified; R45.86 Emotional lability; F41.9 Anxiety disorder, unspecified; F17.210 Nicotine dependence, cigarettes, uncomplicated
CPT/HCPCS: 36415; 80053; 80306; 80320; 80329; 81000; 84703; 85007; 85027; 93005

== ENCOUNTER 2020-07-20 03:20 | Emergency (ER) | payer SELFPAY ==
[~2020-07-20] VITALS: Ht 162.6 cm; Wt 59.9 kg
--- NOTE | 2020-07-20 03:36 | ED Abdominal Pain ---
General Chief Complaint: Abdominal/GI Problems Stated Complaint: STOMACHE/BACK PAIN Source of Information: Patient Exam Limitations: No Limitations History of Present Illness Date Seen by Provider: July 20, 2020 Time Seen by Provider: 03:20 Initial Comments Patient is a 45-year-old female presents with intermittent epigastric pain for the past 3 days. Pain radiates to her back scribes sharp rated moderate to severe. Is not worse with eating position change or movement. Partially relieved with rest. Patient was evaluated next rest care for the same. Pain medications taken prior to ED arrival. No fevers chills, nausea vomiting or sweats. No flank pain. No urinary frequency urgency or dysuria or burning. No history of kidney stones.. Previous hysterectomy and appendectomy. Timing/Duration: 1-3 Hours Severity/Quality: Moderate Location: Epigastric Radiation: Other Activities at Onset: Other Modifying Factors: Improves With Other Associated Symptoms: Other Allergies and Home Medications Allergies Coded Allergies: No Known Drug Allergies (Unverified , 07/17/18) Home Medications Famotidine 20 Mg Tablet, 20 MG PO BID Prescribed by: PATRICIA LAMB on 07/17/181819 Hydrocodone Bit/Acetaminophen 1 Tab Tab, 1 EACH PO Q4-6HR PRN for PAIN-MODERATE Prescribed by: ADARSH AVITIA on 08/20/181936 Hydrocodone Bit/Acetaminophen 1 Tab Tab, 1 EACH PO Q4-6HR PRN for PAIN-MODERATE Prescribed by: ZOLTAN MANN on 08/28/18 2352 Ondansetron 4 Mg Tab.rapdis, 4 MG PO Q6H PRN for NAUSEA/VOMITING Prescribed by: PATRICIA LAMB on 07/17/181820 Ondansetron 4 Mg Tab.rapdis, 4 MG PO Q6H PRN for NAUSEA/VOMITING-1ST LINE Prescribed by: ADARSH AVITIA on 08/20/181936 Pantoprazole Sodium 40 Mg Tablet.dr, 40 MG PO BID Prescribed by: ADARSH AVITIA on 08/20/181936 Tramadol HCl 50 Mg Tablet, 50-100 MG PO Q6H PRN for PAIN-MILD TO MODERATE Prescribed by: PATRICIA LAMB on 07/17/181821 Patient Home Medication List Home Medication List Reviewed: Yes Review of Systems Review of Systems Constitutional: see HPI EENTM: See HPI Respiratory: See HPI Cardiovascular: See HPI Gastrointestinal: See HPI Musculoskeletal: see HPI Skin: see HPI Psychiatric/Neurological: See HPI Endocrine: See HPI Hematologic/Lymphatic: See HPI All Other Systems Reviewed Negative Unless Noted: Yes Past Mjvcgcw-Cyquux-Hfxfhl Hx Past Med/Social Hx: Reviewed Nursing Past Med/Soc Hx Patient Social History Alcohol Beverage of Choice: Cheap Liquor Drug of Choice: marijuana Type Used: Cigarettes 2nd Hand Smoke Exposure: Yes Recent Hopitalizations: No Seasonal Allergies Seasonal Allergies: No Past Medical History Surgeries: Yes Appendectomy, Hysterectomy Respiratory: No Cardiac: No Neurological: No Genitourinary: No Gastrointestinal: No Musculoskeletal: No Endocrine: No HEENT: No Cancer: No Psychosocial: Yes Anxiety, Depression Integumentary: No Blood Disorders: No Physical Exam Vital Signs Vital Signs - First Documented 07/20/20 03:28 Temp 37.1 Pulse 82 Resp 17 B/P (MAP) 115/70 (85) O2 Delivery Room Air Capillary Refill : Height/Weight/BMI Height: 5'4.00" Weight: 136lbs. oz. 61.971099pu; 23.00 BMI Method:Stated General Appearance: WD/WN, no apparent distress HEENT: PERRL/EOMI, normal ENT inspection, pharynx normal Neck: non-tender, full range of motion Respiratory: chest non-tender, lungs clear Gastrointestinal: soft; No abnormal bowel sounds, No distended, No guarding, No rebound; tenderness (Epigastric) Back: normal inspection, no CVA tenderness Male: normal genitalia Neurologic/Psychiatric: can washer II-XII nml as tested, no motor/sensory deficits, alert, oriented x 3 Focused Exam Sepsis Stage: Ruled Out Progress/Results/Core Measures Results/Orders Lab Results Laboratory Tests Test 07/20/20 03:39 07/20/20 03:55 Range/Units Urine Color DARK YELLOW Urine Clarity CLOUDY Urine pH 6.0 5-9 Urine Specific [place] >=1.030 1.016-1.022 Urine Protein NEGATIVE NEGATIVE Urine Glucose (UA) NEGATIVE NEGATIVE Urine Ketones TRACE H NEGATIVE Urine Nitrite NEGATIVE NEGATIVE Urine Bilirubin NEGATIVE NEGATIVE Urine Urobilinogen 0.2 < = 1.0 MG/DL Urine Leukocyte Esterase NEGATIVE NEGATIVE Urine RBC (Auto) 2+ H NEGATIVE Urine RBC NONE /HPF Urine WBC NONE /HPF Urine Squamous Epithelial Cells >50 H /HPF Urine Crystals NONE /LPF Urine Bacteria NEGATIVE /HPF Urine Casts NONE /LPF Urine Mucus NEGATIVE /LPF Urine Culture Indicated NO White Blood Count 9.0 4.3-11.0 10^3/uL Red Blood Count 4.36 4.35-5.85 10^6/uL Hemoglobin 13.8 11.5-16.0 G/DL Hematocrit 39 35-52 % Mean Corpuscular Volume 90 80-99 FL Mean Corpuscular Hemoglobin 32 25-34 PG Mean Corpuscular Hemoglobin Concent 35 32-36 G/DL Red Cell Distribution Width 12.8 10.0-14.5 % Platelet Count 336 130-400 10^3/uL Mean Platelet Volume 10.4 7.4-10.4 FL Immature Granulocyte % (Auto) 0 % Neutrophils (%) (Auto) 74 42-75 % Lymphocytes (%) (Auto) 22 12-44 % Monocytes (%) (Auto) 4 0-12 % Eosinophils (%) (Auto) 0 0-10 % Basophils (%) (Auto) 0 0-10 % Neutrophils # (Auto) 6.7 1.8-7.8 X 10^3 Lymphocytes # (Auto) 2.0 1.0-4.0 X 10^3 Monocytes # (Auto) 0.4 0.0-1.0 X 10^3 Eosinophils # (Auto) 0.0 0.0-0.3 10^3/uL Basophils # (Auto) 0.0 0.0-0.1 10^3/uL Immature Granulocyte # (Auto) 0.0 0.0-0.1 10^3/uL Sodium Level 136 135-145 MMOL/L Potassium Level 4.7 3.6-5.0 MMOL/L Chloride Level 102 98-107 MMOL/L Carbon Dioxide Level 22 21-32 MMOL/L Anion Gap 12 5-14 MMOL/L Blood Urea Nitrogen 8 7-18 MG/DL Creatinine 0.84 0.60-1.30 MG/DL Estimat Glomerular Filtration Rate > 60 BUN/Creatinine Ratio 10 Glucose Level 117 H 70-105 MG/DL Calcium Level 8.9 8.5-10.1 MG/DL Corrected Calcium 8.5-10.1 MG/DL Total Bilirubin 0.5 0.1-1.0 MG/DL Aspartate Amino Transf (AST/SGOT) 14 5-34 U/L Alanine Aminotransferase (ALT/SGPT) 7 0-55 U/L Alkaline Phosphatase 96 40-136 U/L Total Protein 7.7 6.4-8.2 GM/DL Albumin 4.6 H 3.2-4.5 GM/DL Lipase 13 8-78 U/L My Orders Orders - ANNA WELLER DO Urinalysis (07/20/20 03:36) Urine Bedside (07/20/20 03:36) Cbc With Automated Diff (07/20/20 03:41) Comprehensive Metabolic Panel (07/20/20 03:41) Lipase (07/20/20 03:41) Ct Abdomen/Pelvis W (07/20/20 03:41) Fentanyl Inj (Sublimaze Injection) (07/20/20 03:45) Ondansetron Injection (Zofran Injectio (07/20/20 03:45) Iohexol Injection (Omnipaque 350 Mg/Ml 1 (07/20/20 03:45) Received Contrast (Hold Metformin- Contr (07/20/20 03:45) Ns (Ivpb) (Sodium Chloride 0.9% Ivpb Bag (07/20/20 03:45) Ed Iv/Invasive Line Start (07/20/20 03:54) Medications Given in ED Current Medications Medications Dose Ordered Sig/Tejas Route Start Time Stop Time Status Last Admin Dose Admin Fentanyl Citrate 25 mcg ONCE ONCE IVP 07/20/20 03:45 07/20/20 03:46 DC 07/20/20 03:48 25 MCG Iohexol 100 ml ONCE ONCE IV 07/20/20 03:45 07/20/20 03:46 DC 07/20/20 03:56 100 ML Ondansetron HCl 4 mg ONCE ONCE IVP 07/20/20 03:45 07/20/20 03:46 DC 07/20/20 03:47 4 MG Sodium Chloride 100 ml ONCE ONCE IV 07/20/20 03:45 07/20/20 03:46 DC 07/20/20 03:56 100 ML Vital Signs/I&O 07/20/20 03:28 Temp 37.1 Pulse 82 Resp 17 B/P (MAP) 115/70 (85) O2 Delivery Room Air Departure Communication (Admissions) CT abdomen pelvis: 2 cm ovarian cyst. No other acute findings. Patient lab, CT unrevealing other than the presence of cyst which is in a different location of the pain. Will treat supportively with PCP follow-up. Return precautions reviewed. Patient verbalizes understanding agreement discharge instructions prior to departure. Impression Primary Impression: Epigastric abdominal pain Additional Impression: Ovarian cyst Disposition: HOME, SELF-CARE Condition: Stable Departure-Patient Inst. Decision time for Depature: 05:19 Referrals: SELF,PAT PLUMMER (PCP/Family) Primary Care Physician Patient Instructions: Ovarian Cyst (DC), Abdominal Pain, Adult ED Add. Discharge Instructions: Your evaluated in the emergency department for upper abdominal pain. CT lab were performed and are nondiagnostic in the presence of a small ovarian cyst. Please take newly prescribed medications as directed and follow-up with your PCP for reevaluation in 1 to 2 days. Return to the ED if new or worsening symptoms All discharge instructions reviewed with patient and/or family. Voiced understanding. Scripts Tramadol HCl (Tramadol HCl) 50 Mg Tablet 12 MG PO Q6H PRN for PAIN for 3 Days, TAB 0 Refills Prov: ANNA WELLER DO 07/20/20 Famotidine (Pepcid) 20 Mg Tablet 20 MG PO BID, #20 TAB Prov: ANNA WELLER DO 07/20/20 ANNA WELLER DO July 20, 2020 03:36
[2020-07-20] MEDS ORDERED: IOHEXOL 350 MG/ML 100 ML (OMNIPAQUE 350) VIAL IV ONE (03:45)
[2020-07-20] MEDS ORDERED: ONDANSETRON 4 MG/2 ML (SDV) Z0FRAN IVP ONE (03:45)
[2020-07-20] MEDS ORDERED: fentaNYL INJ 100 MCG/2 ML AMP IVP ONE (03:45)
[2020-07-20] MEDS ORDERED: NS 100 ML (IVPB) BAG IV ONE (03:45)
[2020-07-20] MEDS ORDERED: HOLD METFORMIN - RECEIVED CONTRAST 20 ML VIAL IV SCH (03:45)
[2020-07-20 03:50] LABS: CLARITY,URINE CLOUDY; COLOR,URINE DARK YELLOW; GLUCOSE, URINE (UA) NEGATIVE (NEGATIVE); KETONES,URINE TRACE (NEGATIVE); NITRITE,URINE NEGATIVE (NEGATIVE); PROTEIN,URINE NEGATIVE (NEGATIVE)
[2020-07-20 03:51] LABS: BACTERIA,URINE NEGATIVE /HPF; BILIRUBIN,URINE NEGATIVE (NEGATIVE); LEUKOCYTE ESTERASE ,URINE NEGATIVE (NEGATIVE); SQUAMOUS EPITHELIAL CELL,UR >50 /HPF
[2020-07-20 04:01] LABS: HEMOGLOBIN 13.8 G/DL (11.5-16.0); MEAN CORPUSCULAR HEMOGLOBIN 32 PG (25-34)
[2020-07-20 04:02] LABS: BASOPHILS % (AUTO) 0 % (0-10); EOSINOPHILS % (AUTO) 0 % (0-10); HEMATOCRIT 39 % (35-52); LYMPHOCYTES % (AUTO) 22 % (12-44); MEAN CORPUSCULAR HGB CONC 35 G/DL (32-36); MEAN CORPUSCULAR VOLUME 90 FL (80-99); MEAN PLATELET VOLUME 10.4 FL (7.4-10.4); MONOCYTES # (AUTO) 0.4 X 10^3 (0.0-1.0); MONOCYTES % (AUTO) 4 % (0-12); NEUTROPHILS # (AUTO) 6.7 X 10^3 (1.8-7.8); NEUTROPHILS % (AUTO) 74 % (42-75); PLATELET COUNT 336 10^3/uL (130-400)
[2020-07-20 04:20] LABS: ALANINE AMINOTRANSFERASE 7 U/L (0-55); ALBUMIN 4.6 GM/DL (3.2-4.5); ALKALINE PHOSPHATASE 96 U/L (40-136); BILIRUBIN,TOTAL 0.5 MG/DL (0.1-1.0); BUN/CREATININE RATIO 10; CALCIUM 8.9 MG/DL (8.5-10.1); CARBON DIOXIDE 22 MMOL/L (21-32); CHLORIDE 102 MMOL/L (98-107); CREATININE SERUM 0.84 MG/DL (0.60-1.30); GFR ESTIMATED > 60; GLUCOSE 117 MG/DL (70-105); POTASSIUM 4.7 MMOL/L (3.6-5.0); SODIUM 136 MMOL/L (135-145); TOTAL PROTEIN 7.7 GM/DL (6.4-8.2)
[2020-07-20 04:21] LABS: LIPASE 13 U/L (8-78)
[2020-07-20] MEDS ORDERED: FAMO-119 PO (05:20)
[2020-07-20] MEDS ORDERED: TRM50T PO (05:20)
[2020-07-20 05:25] VITALS: BP 118/64
--- NOTE | 2020-07-20 07:05 | Diagnostic Imaging Report ---
PROCEDURE: CT abdomen and pelvis with contrast. TECHNIQUE: Multiple contiguous axial images were obtained through the abdomen and pelvis after administration of intravenous contrast. Auto Exposure Controls were utilized during the CT exam to meet ALARA standards for radiation dose reduction. All CT scans use one or more of the following dose optimizing techniques: automated exposure control, MA and/or KvP adjustment based on patient size and exam type or iterative reconstruction. INDICATION: Abdominal and back pain x1 week. CORRELATION STUDY: 08/25/2018 FINDINGS: LOWER THORAX: Clear. LIVER: 11 mm area of hypervascular enhancement inferior right hepatic lobe, generally stable. Small calcified granuloma lateral aspect. GALLBLADDER: Present and unremarkable. No bile duct dilatation. SPLEEN: Unremarkable. PANCREAS: Unremarkable. ADRENAL GLANDS: Unremarkable. KIDNEYS: Normal configuration. No calcification or obstruction. ABDOMINAL AORTA: Unremarkable, nonaneurysmal. GASTROINTESTINAL TRACT: Stomach is relatively collapsed resulting in some gastric wall thickening. Slightly more focal wall edema at the pylorus. No small bowel obstruction. Moderate amount of stool within the colon. Prior appendectomy. URINARY BLADDER: Relatively decompressed not well evaluated. REPRODUCTIVE: Hysterectomy changes. Clips in the anterior pelvis. Approximately 2 cm left ovarian cyst. OSSEOUS STRUCTURES: No acute abnormality. OTHER: None. IMPRESSION: 1. Question asymmetric distal gastric wall thickening. This maybe owing to its collapsed state with possibly of other processes including a peptic ulcer disease not excluded. Moderate stool retention. Otherwise negative for acute abdomen about the abdomen and/or pelvis. Initial report was provided by [facility]. Some additional findings have been described in addition to the initial report. Report was faxed and called to Genesis Patel, nurse by jeanne at 7:01am. Dictated by: Dictated on workstation # [id number]
== END 2020-07-20 05:26 | disposition home or self-care (01) ==
LOC: EDUNIT# 03:20 → ER FS 03:23
DX: R10.13 Epigastric pain (principal); N83.209 Unspecified ovarian cyst, unspecified side; Z77.22 Contact with and (suspected) exposure to environmental tobacco smoke (acute) (chronic); Z90.710 Acquired absence of both cervix and uterus; Z90.89 Acquired absence of other organs
CPT/HCPCS: 36415; 74177; 80053; 81000; 83690; 84703; 85025